=== PATIENT | female | born 1975 | race Caucasian/White ===

== ENCOUNTER 2019-05-03 13:27 | Inpatient (IN) | payer MEDICAID ==
[~2019-05-03] VITALS: Ht 160 cm; Wt 62.6 kg
[2019-05-03] VITALS (7 sets, daily range): BP systolic 119–136; BP diastolic 75–93; Ht 160 cm; Wt 62.6 kg
--- NOTE | 2019-05-03 13:45 | NUR ---
PT BACK TO LOBBY AWAITING BED AVAILABILITY. PT ASKED FOR A WHEELCHAIR, I PROVIDED AND WHEELED HERE TO [facility] L[facility]. PT AAOX4 NO DISTRESS.
--- NOTE | 2019-05-03 14:30 | NUR ---
PT WHEELED TO BED T1 GOWN PROVIDED PT INST TO PROVIDE URINE SAMPLE. PT ASKED IF I COULD WHEEL HER TO BATHROOM WHICH I DID. PRIMARY RN GRETCHEN MADE AWARE AND RESUMING CARE AT THIS TIME.
--- NOTE | 2019-05-03 14:47 | NUR ---
PT. IN ED WITH C/O EPIGASTRIC PAIN 04/17 SINCE YESTERDAY. DENIES FEVERS, N/V/D OR CONSTIPATION. PT. AAOX4, TALKING AND RESPONDING APPROPRIATELY, BREATHING E/U. NAD. AWAITING MSE
--- NOTE | 2019-05-03 14:55 | NUR ---
PT. FOUND IN ROOM, NOT RESPONSIVE. PLACED ON SET AND EXHIBIT DESIGNER. CPR STARTED.
--- NOTE | 2019-05-03 14:58 | NUR ---
DR. WELSH AT BEDSIDE.
--- NOTE | 2019-05-03 14:58 | NUR ---
DEFIB PADS PLACED ON PT. NOTED TO BE IN TORSADES RHYTHM, SHOCKED ADMINISTERED AT 120J PER DR. WELSH. CPR CONTINUED.
--- NOTE | 2019-05-03 14:58 | NUR ---
PT. FOUND IN ROOM UNRESPONSIVE AND CYANOTIC. CPR STARTED.
--- NOTE | 2019-05-03 15:00 | NUR ---
EPI 1MG IV GIVEN
--- NOTE | 2019-05-03 15:00 | NUR ---
MAG 2MG IV GIVEN, PT. SHOCKED FOR SECOND TIME AT 150JOLES.
--- NOTE | 2019-05-03 15:04 | NUR ---
PT. AWAKE, SLOW TO RESPOND. DR. WELSH AT BEDSIDE FOR INTUBATION.
--- NOTE | 2019-05-03 15:08 | NUR ---
PT. INTUBATED BY DR. WELSH. LUNG SOUNDS PRESENT TO ASCULTATION BILATERALLY. NO DIFICULITIES NOTED DURING INTUBATION.
--- NOTE | 2019-05-03 15:20 | NUR ---
BILATERAL SOFT RESTRAINTS PLACED ON BILATERAL WRIST. PT. TRYING TO PULL OUT ET TUBE.
[2019-05-03 15:42] LABS: UA SPECIFIC GRAVITY >=1.030 (1.005-1.035); microscopic required? YES; urine erythrocyte NEGATIVE (NEGATIVE)
[2019-05-03 15:48] LABS: BASOPHIL % 0.1 % (0-2); PLATELET COUNT 298 x10^3mcL (130-400); RED CELL DISTRIBUTION WIDTH 13.4 % (11.5-14.5)
[2019-05-03 15:51] LABS: AMPHETAMINE QUAL UR POSITIVE (See below)
--- NOTE | 2019-05-03 16:05 | NUR ---
WENT W/ DR. WELSH TO SPEAK W/ PT'S DAUGHTER IN QUIET ROOM. PER DAUGHTER, PT HAS NO MEDICAL HISTORY BUT DID HAVE SHINGLES RECENTLY. PER DAUGHTER, PT HAS HX OF SMOKING METH BUT HAS CUT DOWN RECENTLY D/T HAVING A NEW JOB. 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 PT ATTRIBUTED PAIN TO LIFTING @ WORK. PER DAUGHTER, PT CAME HOME & WENT TO BED, & WAS MOANING A LOT IN HER SLEEP. PT FINALLY GOT UP & ASKED TO BE BROUGHT TO HOSPITAL D/T THE PAIN. DAUGHTER STATES HER FIANCE BROUGHT PT TO THE ER EARLIER TODAY.
--- NOTE | 2019-05-03 16:16 | NUR ---
PT. BACK FROM CT
--- NOTE | 2019-05-03 16:22 | NUR ---
ACCOMPANIED PT TO AND FROM CT SCANNER. CT COMPLETED WITH NO COMPLICATIONS.
[2019-05-03 16:28] LABS: CALCIUM 7.5 mg/dL (8.5-10.1); CARBON DIOXIDE 20.5 mmol/L (21-32); CHLORIDE SERUM 104 mmol/L (98-107); CREATININE SERUM 0.7 mg/dL (0.6-1.0); GFR1 > 60 mL/min; GLUCOSE SERUM 185 mg/dL (74-106); POTASSIUM SERUM 3.8 mmol/L (3.5-5.1); SODIUM SERUM 138 mmol/L (136-145)
[2019-05-03 16:29] LABS: FREE T4 0.85 ng/dL (0.76-1.46); FREE THYROXINE INDEX 2.1 ug/dL (1.4-4.5); T4(THYROXINE) 6.6 ug/dL (4.7-13.3)
--- NOTE | 2019-05-03 16:30 | NUR ---
DAUGHTER BROUGHT IN TO SEE PT.
[2019-05-03 16:31] LABS: CK-MB 12.9 ng/mL (0-3.6)
[2019-05-03 16:39] LABS: ALKALINE PHOSPHATASE 101 U/L (46-116); ALT/SGPT 310 U/L (14-59); AST/SGOT 287 U/L (15-37); BILIRUBIN TOTAL 0.7 mg/dL (0.20-1.00); C REACTIVE PROTEIN 0.5 mg/dL (<=0.9); TOTAL PROTEIN, SERUM 6.7 g/dL (6.4-8.2)
[2019-05-03 16:45] LABS: ALBUMIN 3.2 g/dL (3.4-5.0)
--- NOTE | 2019-05-03 16:50 | NUR ---
PT. NOTED TO BE AGITATED AND TRYING TO PULL OUT ET TUBE PROPROFOL INCREASED TO 30MCG/KG/MIN.
[2019-05-03 16:52] LABS: ERYTHROCYTE SED RATE 8 mm/hr (0-20)
[2019-05-03 16:55] LABS: T3 TOTAL 1.06 ng/mL
--- NOTE | 2019-05-03 17:00 | NUR ---
PT. CONTINUES TO BE AGITATED AND TRYING TO PULL ON ET TUBE. PER. DR. KNIGHT, PROPROFOL INCREASED TO 40MCG.
--- NOTE | 2019-05-03 17:05 | NUR ---
PER RT. FIO2 CHANGED TO 60% AND RR AT 18/MIN
--- NOTE | 2019-05-03 17:10 | NUR ---
PT. CONTINUES TO BE AGITATED. PROPROFOL TITRATED TO 50MCG.
--- NOTE | 2019-05-03 17:16 | NUR ---
PT. STARTING TO SIT UP IN BED AND TYRING TO PULL OUT ET TUBE. DR. KNIGHT MADE AWARE THAT PT. IS MAXED OUT ON PROPROFOL. ATIVAN IV ORDERED.
--- NOTE | 2019-05-03 17:35 | NUR ---
PT. SLEEPING. NO AGITATION NOTED. PROPROFOL TITRATED TO 45MCG. PT. TOLERATING WELL. WILL CONTINUE TO MONITOR
--- NOTE | 2019-05-03 18:30 | NUR ---
PT. RESTING, CONTINUES TO BE ON VENTILATOR. TOLERATING WELL. NO AGITATION OR PULLING OF LINES NOTED. FRANKLIN IN PLACE AND NOTED TO HAVE CLEAR MORAIMA URINE IN COLLECION BAG. PT. MOUTH SUCTIONED. CLEAR PHLEM NOTED IN MOUTH. PER XRAY RESULTS NG TUBE IN PLACE BUT MAY BE ADVANCED, NE. DR. KNIGHT, NO ADVANCEMENT OF NG NEEDED AT THIS TIME. PT. ABD SOFT NON DISTENDED. PT. CONTINUES TO BE ON CUSTOMER RELATIONS REPRESENTATIVE IN NSR. BILATERAL WRIST RESTRAINTS IN PLACE, +PULSES BILATERALLY, NO SKIN BREAKDOWN NOTED. SISTER AT BEDSIDE. WILL CONTINUE TO MONITOR.
[2019-05-03 18:33] LABS: MAGNESIUM 2.2 mg/dL (1.8-2.4)
--- NOTE | 2019-05-03 18:58 | NUR ---
350ML OF CLEAR MORAIMA URINE EMPTIED OUT OF FRANKLIN BAG
--- NOTE | 2019-05-03 19:12 | NUR ---
PT. NOTED TO HAVE TAMPON IN VAGINA, REMOVED AND PAD PLACED TO PERINEAL AREA.
--- NOTE | 2019-05-03 19:15 | NUR ---
RECEIVED REPORT FROM LIZETH GODINEZ. PT ET TO VENT. SETTINGS R 18 TV 450 PEEP 5 02 60% PF 60. RSS 5. PROPOFOL TITRATED DOWN TO 40MCG/KG/MIN. PT HAS BILATERAL SOFT WRIST RESTRAINTS, CIRCULATION WNL. FRANKLIN CATHETER DRAINING YELLOW URINE TO GRAVITY, FREE OF KINKS. NG TUBE NOTED TO RIGHT NARE. FAMILY AT BEDSIDE. DR KNIGHT TO UPDATE FAMILY AT BEDSIDE. WILL CONTINUE PLAN OF CARE.
--- NOTE | 2019-05-03 19:17 | NUR ---
REPORT GIVEN TO ARISTEO RN FOR FURTHER CARE OF PATIENT. ALL QUESTIONS AND CONCERNS ADDRESSED.
--- NOTE | 2019-05-03 19:24 | NUR ---
NG TUBE CONNECTED TO INTERMITTENT SUCTION PER DR KNIGHT VERBAL ORDER. OUTPUT LIGHT BROWN WITH BROWN CHUNKS NOTED.
--- NOTE | 2019-05-03 19:25 | NUR ---
RSS 5. PROPOFOL TITRATED DOWN TO 35MCG/KG/HR.
--- NOTE | 2019-05-03 19:44 | NUR ---
RSS 5. PROPFOL TITRATED TO 30MCG/KG/HR.
--- NOTE | 2019-05-03 19:45 | NUR ---
SPOKE [facility] FAMILY. GIVEN CONTACT INFO FOR DAUGHTER AND SISTER. PRIMARY CONTACT-DAUGHTERJEANIE. SISTER- JULIET .
--- NOTE | 2019-05-03 19:52 | NUR ---
REPORT CALLED AND GIVEN TO LIZETH RICHARDS.
--- NOTE | 2019-05-03 20:10 | NUR ---
NEW BOTTLE OF PROPOFOL SPIKED. PROPOFOL INFUSING AT 30MCG/KG/MIN.
--- NOTE | 2019-05-03 20:12 | NUR ---
450ML OUTPUT FROM NG.
--- NOTE | 2019-05-03 20:15 | NUR ---
RECEIVED PT FROM ER VIA GURNEY ACCOMPANIED BY 3 RN'S. PT TRANSFERRED TO BED 9 WITH NO COMPLICATIONS. PT CONNECTED TO FULL AIR HOLE DRILLER READING SR, VITALS READING: HR 87, NIBP 119/76 MAP 88, RR 18, SPO2 100%, AXILLARY TEMP 97.9. PT IS INTUBATED AND SEDATED ON PROPOFOL @ 30 MCG/KG/MIN. RSS=4. PT RESPONDS TO TACTILE STIMULI. PT DOES NOT FOLLOW COMMANDS. PUPILS WITH SLUGGISH RESPONSE TO LIGHT, 3 MM BLAT. GAG REFLEX PRESENT. 7.5 ETT INTACT/SECURED, 22 CM @ LL. RIGHT NARE NGT INTACT/ SECURED, PLACED ON LIS PER MD ORDER, PRICE COLORED DRAINAGE NOTED. BREATHING IS E/U ON VENT. VENT SETTINGS: VCV/AC MODE, RATE 18, VT 450, PEEP 5, FIO2 60%. LUNGS SOUND CLEAR TO BUL AND DIMIN TO BLL. SYMMETRICAL CHEST EXPANSION NOTED. PALPABLE PULSES X4 EXTREMITIES. SKIN IS WARM AND DRY. NO EDEMA NOTED. CAP REFILL < [address] IV IN PL[address] WITH NO S/S OF INFILTRATION NOTED. PT ON BILAT SOFT WRIST RESTRAINT FOR PT SAFETY, GOOD CIRCULATION NOTED, SKIN/PULSE WNL. ABD IS SOFT, FLAT, NONTENDER TO PALPATION. BOWEL SOUNDS ACTIVE X4 QUADRANTS. NO BM NOTED. F/C IS INTACT/SECURED, DRAINING VIA GRAVITY WITH MORAIMA COLORED URINE. SKIN IS INTACT. BED IN LOW POSITION. CALL LIGHT IN REACH. WILL CONT TO MONITOR
--- NOTE | 2019-05-03 20:19 | NUR ---
PT TRANSFERRED TO ICU WITH 2RN'S, TECH AND RT. ETT TO VENT. NG TUBE CLAMPED. PROP INFUSING AT 30MCG/KG/MIN. RSS 4. PT TRANSFERRED ON FULL CM. ALL PERSONAL BELINGINGS SENT WITH PT. FAMILY AWARE OF TRANSFER. RESP E/U. VSS AT TIME OF TRANSFER.
[2019-05-03 20:26] LABS: CHOLESTEROL/HDL RATIO 1.9
--- NOTE | 2019-05-03 22:09 | NUR ---
RT ZHONG AT BEDSIDE. FIO2 TITRATED TO 50%. PT'S CURRENT O2 SATURATION 100%. WILL CONT TO MONITOR
--- NOTE | 2019-05-03 22:35 | NUR ---
RAC IV REMOVED AT THIS TIME AND NEW 20 GAUGE IV ESTABLISHED TO THE RIGHT HAND. IV FLUSHED 10 ML OF NS WITH NO S/S OF INFILTRATION NOTED
[2019-05-04] VITALS (18 sets, daily range): BP systolic 114–137; BP diastolic 67–94
[2019-05-04 00:05] LABS: CALCIUM 7.5 mg/dL (8.5-10.1); CARBON DIOXIDE 25.6 mmol/L (21-32); CHLORIDE SERUM 105 mmol/L (98-107); CREATININE SERUM 0.5 mg/dL (0.6-1.0); GFR1 > 60 mL/min; GLUCOSE SERUM 118 mg/dL (74-106); MAGNESIUM 1.9 mg/dL (1.8-2.4); POTASSIUM SERUM 3.3 mmol/L (3.5-5.1); SODIUM SERUM 139 mmol/L (136-145)
--- NOTE | 2019-05-04 00:36 | NUR ---
FIO2 TITRATED TO 40% BY FARHEEN DALLAS. CURRENT O2 SATURATION 99%. WILL CONT TO MONITOR.
--- NOTE | 2019-05-04 04:40 | NUR ---
REMOTELY OPERATED VEHICLE AT BEDSIDE FOR AM LAB DRAW
[2019-05-04 05:15] LABS: BASOPHIL % 0.1 % (0-2); PLATELET COUNT 303 x10^3mcL (130-400); RED CELL DISTRIBUTION WIDTH 13.3 % (11.5-14.5)
[2019-05-04 05:31] LABS: CALCIUM 7.7 mg/dL (8.5-10.1); CARBON DIOXIDE 25.2 mmol/L (21-32); CHLORIDE SERUM 106 mmol/L (98-107); CREATININE SERUM 0.5 mg/dL (0.6-1.0); GFR1 > 60 mL/min; GLUCOSE SERUM 111 mg/dL (74-106); MAGNESIUM 2.1 mg/dL (1.8-2.4); POTASSIUM SERUM 4.2 mmol/L (3.5-5.1); SODIUM SERUM 139 mmol/L (136-145)
--- NOTE | 2019-05-04 05:50 | NUR ---
RT FARHEEN AT BEDSIDE. FIO2 TITRATED TO 30%. PT'S O2 SATURATION 99%. WILL CONT TO MONITOR
--- NOTE | 2019-05-04 07:05 | NUR ---
REPORT GIVEN TO FERDINAND STANLEY FOR CONTINUITY OF CARE. ALL QUESTIONS/CONCERNS ADDRESSED. ENDORSING ALL CARE
--- NOTE | 2019-05-04 07:28 | NUR ---
THE PATIENT IS SEDATED WITH PROPOFOL AT 30MCG/KG/MIN. THE PATIENT RESPONSIVE TO TACTILE STIMULI AND FOLLOWS SOME SIMPLE COMMANDS. PATIENT GETS RESLTESS/AGITATED WHEN SEDATION IS ON VACATION. SEDATION IS RESUMED. ANA PUPILS WITH SLUGGISH REACTION TO LIGHT. NGT TO RIGHT NARE AND TO LOWER INTERMITTENT SUCTION WITH BROWN PARTICLE IN CLEAR SECRETION IN THE TUBE. ETT 7.[address] AT 22CM AT LIPLINE. ETT TO VENT VIA VCV/AC MODE: FIO2 30%, RATE 18, VT 450 AND PEEP 5. TELE # 9 READS SINUS TACHYCADIA. FRANKLIN CATH TO GRAVITY DRAINING MORAIMA URINE. IVF NS AT 60 CC/HR VIA IV SITE AT RIGHT HAND. ANOTHER IV SITE TO LAC FOR PROPOFOL. SOFT WRIST RESTRAINTS TO BOTH WRISTS WILL BE RELEASED FOR ROM Q2HR/PRN. CALL LIGHT WITHIN REACH. SIDE RAILS UP X3. BED IS LOWEST POSITION. ALARM IS ON.
--- NOTE | 2019-05-04 08:31 | NUR ---
DR. WHITT IS AT BEDSIDE EXAMING THE PATIENT.
--- NOTE | 2019-05-04 09:05 | NUR ---
CAFETERIA CLERK IS AT BEDSIDE FOR ECHO.
--- NOTE | 2019-05-04 09:55 | NUR ---
DR. TOTH AND THE TEAM WERE MAKING ROUND TO SEE THE PATIENT. UPDATE PROVIDED TO THE DR. TOTH.
--- NOTE | 2019-05-04 10:08 | NUR ---
DR. COLEMAN IS AT BEDSIDE EXAMING THE PATIENT. UPDATE PROVIDED TO THE DOCTOR.
--- NOTE | 2019-05-04 10:42 | NUR ---
THE PATIENT IS GETTING RESTLESS/AGITATED; PATIENT IS MOVING BUE AND KICKING. PROPOFOL IS TITRATED FROM 30MCG/KG/MIN UP TO 35MCG/KG/MIN.
--- NOTE | 2019-05-04 10:56 | NUR ---
PLANT CYTOLOGIST IS AT BEDSIDE FOR SMALL BOWEL FOLLOW THROUGH.
--- NOTE | 2019-05-04 13:15 | NUR ---
Discount pharmacy card and list to low cost medical clinics given to patient by Clement Canseco.
--- NOTE | 2019-05-04 14:16 | NUR ---
DR HERNANDEZ AT BEDSIDE TO ASSESS PATIENT. PATIENT'S DAUGHTER JEANIE AT BEDSIDE. DR HERNANDEZ DISCUSSED POC WITH JEANIE. ALL QUESTIONS AND CONCERNS ADDRESSED.
--- NOTE | 2019-05-04 14:55 | NUR ---
BOLUS OF AMIODORONE 150 MG IV INITIATED AT THIS TIME FOLLOW BY AMIO DRIP AT 1 MG/HR.
--- NOTE | 2019-05-04 15:00 | NUR ---
ANOTHER IV SITE #20G INSERTED TO LFA FOR MORE ACCESS.
--- NOTE | 2019-05-04 16:43 | NUR ---
XR TECH IS AT BEDSIDE FOR KUB TO RECHECK NGT PLACEMENT AFTER IT WAS ADVANCED 2 INCHES.
--- NOTE | 2019-05-04 17:50 | NUR ---
THE SILVER COLORED RING WAS REMOVED FROM THE RIGHT MIDDLE FINGER (DUE TO EDEMA OF THE FINGER) AND STORED IN A PLASTIC BAG. WILL HAND IT TO ONCOMING RN TO GIVE IT BACK TO THE FAMILY. THE PATIENT WAS GIVEN A BED BATH. LINEN AND GOWN CHANGED. FRANKLIN CARE PROVIDED TO THE PATIENT.
--- NOTE | 2019-05-04 18:25 | NUR ---
TUBE FEEDING WITH VITAL AF VIA NGT WAS INITIATED AT 10ML/HR AND FREE WATER FLUSH 50ML Q4HR. ORDERED.
--- NOTE | 2019-05-04 19:07 | NUR ---
RECEIVED GROUP REPORT FROM KIMBERLY KAT AND ANI STANLEY. WILL RESUME CARE.
--- NOTE | 2019-05-04 19:09 | NUR ---
REPORT WAS GIVEN TO MAYRA BEAL RN. CONCERNS WERE ADDRESSED. THE RING WAS HANDED TO EMIGDIO IN ORDER TO GIVE TO THE FAMILY. ALSO, ENDORSE TO EMIGDIO 3 BAGS OF FENTANYL AND 2 BAGS OF VERSED FOR THE PATIENT'S SEDATION.
--- NOTE | 2019-05-04 19:20 | NUR ---
RECEIVED PT INTUBATED AND SEDATED ON FENTANYL AT 4MMCG/KG/HR AND VERSED AT 2MG/HR. PT IS RESPONSIVE TO TACTILE STIMULI. UNABLE TO FOLLOW COMMANSDS. PUPILS 3MM SLUGGISH. 7.5 ETT AT 22CM LL INTACT AND SECURED. R NGT INTACT AND SECURED. NO REDNESS, DRAINAGE, OR SWELLING NOTED TO EENT. VENT ON VCV-AC MODE WITH SETTINGS OF VT 450, FIO2 30%, R 18, PEEP 5. LUNG SOUNDS CLEAR TO UPPER LOBES AND DIMINISHED TO BASES. VAP CARE PROVIDED. S1S2 AUSCULTATED WITH NO MURMURS NOTED. NO S/SX OF CHEST PAIN. AMIODARONE GTT AT 1MG/MIN. CAP REFILL <3 SEC. PULSES PALPABLE. TRACE EDEMA TO BUE AND BLE. GENERALIZED WEAKNESS. JOINTS INTACT. NO CONTRACTURES NOTED. ON VITAL AF 1.2 AT 10ML/HR WITH FWF OF 50 Q4HRS. PLACEMENT CHECKED. 20 CC OF RESIDUAL NOTED AND REPLACED. ABDOMEN ROUND, NONTENDER. BS ACTIVE X 4. NO N/V. NO BM AT THIS TIME. FRANKLIN CATHETER IN PLACE DRAINING VIA GRAVITY MORAIMA URINE. BED IN LOW POSITION. CALL LIGHT WITHIN REACH. WILL CONTINUE TO MONITOR.
--- NOTE | 2019-05-04 21:30 | NUR ---
AMIODARONE GTT TITRATED FROM 1MG/MIN TO 0.5MG/MIN PER MD ORDER.
--- NOTE | 2019-05-04 23:10 | NUR ---
TF OF VITAL AF INCREASED FROM 10ML/HR TO 20ML/HR. NO RESIDUAL NOTED. PT TOLERATING FEEDING WELL.
[2019-05-05] VITALS (11 sets, daily range): BP systolic 104–135; BP diastolic 66–86
--- NOTE | 2019-05-05 00:25 | NUR ---
RT ZHONG AT BEDSIDE ASSESSING PT.
--- NOTE | 2019-05-05 07:35 | NUR ---
RECEIVED PT'S REPORT FROM LEAVING NURSE. PT IS SEDATED ON VERSED 4MG/HR, FENTANYL 2MCG/KG/HR, RSS 4, PT RESPONSED TO TACTILE AND LOUDLY AUDITORY STIMULI WITH BODY WITHDRAWN. PT IS INTUBATED, BREATHING ON VENT AC MODE: PEEP 5, FIO2 30%, VT 450, RR 18. NGT IN R NARIS, VITAL AF TUBE FEEDING AT 30ML/HR WFW 50ML Q4. FRANKLIN CATHETER IN PLACE, DRAINING VIA GRAVITY, DARK MORAIMA URINE. AMIODARON INFUSING AT 0.5MG/MIN. NS INFUSING AT 60ML/HR. WILL CONTINUE PT'S CARE.
--- NOTE | 2019-05-05 07:40 | NUR ---
PT IS ON VITAL AF NGT FEED AT 30ML/HR. PT'S RESIDUAL CHECK, 5ML REPLACED. INCREASED PT'S FEEDING TO 40ML/HR, WFW 50ML Q4H.
--- NOTE | 2019-05-05 08:37 | NUR ---
STARTED PT SEDATION VACATION. RT SHANAE AT BED SIDE.
--- NOTE | 2019-05-05 10:10 | NUR ---
PT'S DAUGHTER JEANIE GARCIA CAME AT BEDSIDE. PT'S RING IS GIVEN TO HER DAUGHTER JEANIE TO TAKE HOME. SEDATION IS OFF, PT IS BREATHING ON VENT CPAP MODE, TOLERATE WELL. PT REMAINING EYES CLOSED AT MOST TIME, BUT PT RESPONSED TO SIMPLE QUESTION WITH NODDING/ SHAKING HEAD. PT FOLLOWS SIMPLE COMMAND. WILL CONTINUE TO MONITOR.
--- NOTE | 2019-05-05 11:42 | NUR ---
PT'S NGT FEEDING RESIDUAL CHECK 20ML, REPLACED. INCREASED TUBE FEEDING FROM 40ML/HR TO 50ML/HR WFW 50ML Q4H.
--- NOTE | 2019-05-05 14:21 | NUR ---
PT IS EXTUBATED AT [address] WHITT ORDER. PT TOLERATE WELL. PT OPEN EYES SPONTANEOUS, FOLLOW COMMAND. ANA SOFT WRIST RESTRAINTS REMOVED. PT IS BREATHING ON O2 2L VIA NC, O2 SAT 99%. WILL CONTINUE TO MONITOR.
--- NOTE | 2019-05-05 16:38 | NUR ---
STOPED AMIODARONE DRIP PER DR. HERNANDEZ'S ORDER. WILL START AMIODARONE PO TONIGHT.
--- NOTE | 2019-05-05 18:02 | NUR ---
BEDSIDE SWALLOW SCREEN COMPLETED. PATIENT ABLE TO TOLERATE JELLO, APPLE SAUCE, PUDDING AND WATER WITH NO COUGHING, GAGGING OR CHOKING. PRIMARY RN MADE AWARE.
--- NOTE | 2019-05-05 19:24 | NUR ---
PT TOLERATE WELL ON FL DIET. ENDORSED PT'S CARE TO RECEIVING NURSE. PT BREATHING ON O2 2L VIA NC, EVEN, UNLABORED. AMIODARONE INFUSING AT 0.5MG/MIN, MAKE RECEIVING NURSE AWARE: TURN OFF AMIODARONE DRIP ONE HOUR AFTER AMIO PO GIVEN.
--- NOTE | 2019-05-05 19:30 | NUR ---
RECEIVED REPORT FROM LIZETH ARRIETA. PT IS ALERT AND ORIENTED X3. PUPILS REACTIVE TO LIGHT. LETHARGIC. PT IS BREATHING E/U ON 2L NC. LUNG SOUNDS CLEAR TO BILATERAL UPPER LOBES, DIMINISHED TO BILATERAL LOWER LOBES. S1 S2 HEART SOUNDS AUSCULTATED. SINUS TACHYCARDIA. PULSES MODERATE X4. CAP REFILL <3 SECS X4. SKIN IS WARM AND PINK. PERIPHERAL IV TO RH, LAC, AND LFA PATENT, DRESSING CDI. NS INFUSING AT 60 ML/HR AND AMIODARONE INFUSING AT 0.5 MG/MIN. ABD IS SOFT AND FLAT WITH ACTIVE BOWEL SOUNDS X4Q. FRANKLIN DRAINING VIA GRAVITY. URINE IS MORAIMA WITH FAIR OUTPUT. SKIN INTACT. ALL QUESTIONS AND CONCERNS ANSWERED. WILL CONTIINUE TO MONITOR.
--- NOTE | 2019-05-05 22:00 | NUR ---
AMIODORONE DRIP STOPPER PER PROTOCOL. PO AMIO GIVEN AT SCHEDULED TIME.
--- NOTE | 2019-05-06 05:10 | NUR ---
PT PROVIDED WITH FULL BED BATH AND LINEN CHANGE. FRANKLIN CARE ALSO PROVIDED. PT ABLE TO ASSIST IN TURNING. PT COMPLAINING OF RIGHT ARM WEAKNESS. STATES THAT HER ARM FEELS SORE.
[2019-05-06 05:22] LABS: BASOPHIL % 0.3 % (0-2); PLATELET COUNT 295 x10^3mcL (130-400); RED CELL DISTRIBUTION WIDTH 13.4 % (11.5-14.5)
[2019-05-06 05:33] LABS: CALCIUM 7.7 mg/dL (8.5-10.1); CARBON DIOXIDE 26.9 mmol/L (21-32); CHLORIDE SERUM 106 mmol/L (98-107); CREATININE SERUM 0.5 mg/dL (0.6-1.0); GFR1 > 60 mL/min; GLUCOSE SERUM 108 mg/dL (74-106); MAGNESIUM 1.9 mg/dL (1.8-2.4); POTASSIUM SERUM 3.6 mmol/L (3.5-5.1); SODIUM SERUM 140 mmol/L (136-145)
--- NOTE | 2019-05-06 06:20 | NUR ---
DR. ANDRADE AT BEDSIDE FOR UPDATES. ALL QUESTIONS AND CONCERNS ANSWERED.
[2019-05-06 08:00] VITALS: BP 123/77
--- NOTE | 2019-05-06 08:10 | NUR ---
AAO TIMES 4. COOPERATIVE. IV SITE RIGHT HAND PATENT, CDI. LUNGS CTA BUL, DIMINISHED BASES. O2 SAT ON RA 97%. BS'S ACTIVE TIMES 4. PERIPHERAL PULSES PALPABLE. NO EDEMA BLE, SLIGHT HAND EDEMA. WITH RIGHT ARM AND HAND WEAKNESS. TOLERATING FULL LIQUID DIET. NO C/O PAIN.
--- NOTE | 2019-05-06 08:41 | NUR ---
PATIENT REMOVED FROM ICU POLE FRAME CONSTRUCTION WORKER AND ASSISTED TO BEDSIDE COMMODE WITHOUT INCIDENT. PATIENT INSTRUCTED TO USE CALL LIGHT BEFORE RETURNING TO BED.
[2019-05-06 09:39] VITALS: BP 135/83
--- NOTE | 2019-05-06 12:13 | NUR ---
ERYTHEMA AND WARMTH TO LFA AROUND THE 2 IV SITES FROM LAC TO LFA. DR WHITT TALKED WITH HER ABOUT HER DRUG USE AND HER HEALTH. DR WHITT SAW THE LFA AND SAID TO REMOVE THE BOTH IV SALINE LOCKS, APPLY NEOSPORIN TO BOTH AND START AN IV ON THE OTHER ARM. A PHOTO WAS TAKEN OF LFA.
--- NOTE | 2019-05-06 12:48 | NUR ---
SCREEN FOR LOW RAMANDEEP SCALE AT RISK CONTINUE PRESSURE ULCER PREVENTION INTERVENTIONS: -TURN AND REPOSITION PATIENT Q 2H OFFLOAD LEFT AND RIGHT HIPS -ASSESS AND MONITOR SKIN CONDITION DURING POSITION CHANGE -OFFLOAD BILATERAL HEELS BY PLACING PILLOWS UNDER CALVES AT ALL TIMES, UNLESS OTHERWISE CONTRAINDICATED -PRESSURE REDISTRIBUTION SURFACE THERAPY -KEEP SKIN CLEAN AND DRY AT ALL TIMES.
--- NOTE | 2019-05-06 12:50 | NUR ---
PATIENT'S MOTHER TELEPHONED UNIT FOR PATIENT UPDATE. PATIENT STATED THAT I CAN TELL HER MOTHER THAT SHE IS OKAY AND WILL BE LEAVING THE IN THE NEXT COUPLE OF DAYS ONLY. LIMITED INFORMATION PROVIDED TO PATIENT'S MOTHER PER PATIENT REQUEST. MOTHER PROVIDED TELEPHONE NUMBER WHICH WAS GIVEN TO PATIENT SO SHE MAY RETURN HER CALL WHEN SHE WANTED.
--- NOTE | 2019-05-06 16:14 | NUR ---
GAVE REPORT TO VEENA RN RESOURCE NURSE AT 1610. PATIENT WILL GO TO ROOM 223B VIA W/C. TELE# 14 SR. VS'S STABLE. NO SOB. HER FAMILY IS AWARE THAT SHE IS GOING TO MED SURG/TELE. SL TO LFA CDI.
--- NOTE | 2019-05-06 16:39 | NUR ---
SHE URINATED TWICE AT BSC AFTER FRANKLIN CATH WAS REMOVED, WITHOUT DIFFICULTY.
--- NOTE | 2019-05-06 16:50 | NUR ---
PATIENT TRANSFERRED FROM WHEELCHAIR TO BED. PATIENT APPEARS INDEPENDENTLY AMBULATORY. NO SIGNS OF DISTRESS NOTED. ALERT AND ORIENTED X 4. RESPIRATION EVEN AND UNLABORED ANTERIOR POSTERIOR BILATERAL BASES. LUNG SOUNDS CLEAR IN ALL QUADRANTS. APICAL HEART RATE 60 BPM. RADIAL AND PEDAL PULSES STRONG, REGULAR BILATERAL UPPER AND LOWER EXTREMITIES. PATIENT HAS 22G IV ON LEFT WRIST TKO. NO SIGNS OF DISTRESS NOTED. WILL CONTINUE TO MONITOR. CALL LIGHT WITHIN REACH.
[2019-05-06 17:00] VITALS: BP 137/84
--- NOTE | 2019-05-06 17:50 | NUR ---
PATIENT APPEARS STABLE. EATING DINNER AND TALKING ON THE PHONE WITH DAUGHTER. NO SIGNS OF DISTRESS NOTED. WILL CONTINUE TO MONITOR. CALL LIGHT WITHIN REACH.
--- NOTE | 2019-05-06 18:44 | NUR ---
END OF SHIFT RN NOTE: PATIENT IS SLEEPING IN BED AFTER EATING. NO SIGNS OF DISTRESS NOTED. PATIENT ON TKO NS. WILL CONTINUE TO MONITOR. CALL LIGHT WITHIN REACH.
--- NOTE | 2019-05-06 19:05 | NUR ---
REPORT RECEIVED FROM DAY SHIFT RN. PATIENT WAS SEEN AND IS RESTING COMFORTABLY IN BED. ASLEEP, BUT EASILY AROUSABLE BY VERBAL STIMULI. PATIENT SEEMS DROWSY AND LETHARGIC. A/OX4. ABLE TO MAKE NEEDS KNOWN. DENIES MILLER OR DIZZINESS. BREATHING EVEN AND UNLABORED ON ROOM AIR. NO SOB OR RESP DISTRESS NOTED. DENIES CHEST PAIN/PRESSURE. NO C/O PAIN. IV TO THE LW, 22G. PATENT AND INTACT. NO REDNESS OR SWELLING NOTED. ASSISTED PATIENT TO BATHROOM. PATIENT AMBULATED WELL WITH A SLOW, BUT STEADY GAIT. VOIDED X1. ASSISTED PATIENT BACK TO BED. MADE COMFORTABLE. SCD APPLIED. ORANGE JUICE GIVEN. COMFORT AND SAFETY MEASURES IN PLACE. BED IS LOCKED AND IN THE LOWEST POSITION. SIDE RAILS UP X2. HOB ELEVATED. CALL LIGHT IS WITHIN REACH. WILL CONTINUE TO MONITOR.
[2019-05-06 21:10] VITALS: BP 110/48
--- NOTE | 2019-05-06 21:29 | NUR ---
BP 110/48 (97), HR 112. RECHECKED. BP 117/69 (85), HR 107. PER EDGARD RAMÍREZ TO GIVE AMIODARONE. SCHEDULED MEDS GIVEN. NO DISTRESS NOTED. BREATHING EVEN AND UNLABORED ON ROOM AIR. APPLIE JUICE GIVEN X2. NO ASPIRATION NOTED. HOB ELEVATED. SAFETY MEASURES IN PLACE. CALL LIGHT IS WITHIN REACH. WILL CONTINUE TO MONITOR.
--- NOTE | 2019-05-06 23:43 | NUR ---
IN PATIENT'S ROOM TO HANG PinkUP. MED EDUCATION GIVEN. OPENED APPLE JUICE FOR PATIENT. NO ASPIRATION NOTED. APPLIED 2L NC ON PATIENT. LOW O2 SAT ON ROOM AIR. NO SATING AT 95%. ASSISTED PATIENT TO BATHROOM. EDUCATION PATIENT TO CALL FOR ASSISTANCE BACK TO BED. VERBALIZED UNDERSTANDING. WILL CONTINUE TO LISA.
--- NOTE | 2019-05-07 03:31 | NUR ---
IV TO LW CAME OUT WHEN PATIENT WENT TO THE BATHROOM. CATHETER INTACT. NEW IV PLACED TO LW, 22G. PATENT AND INTACT. FLUSED WELL. PATIENT TOLERATED WELL. SALINE LOCK. NO DISTRESS NOTED. NO C/O PAIN. SAFETY MEASURES IN PLACE. CALL LIGTH IS WITHIN REACH. WILL CONTINUE TO MONITOR.
[2019-05-07 05:47] VITALS: BP 117/73
--- NOTE | 2019-05-07 06:24 | NUR ---
RESTED IN INTERVALS THROUHGOUT THE NIGHT. NO ACUTE CHANGES NOTED. BREATHING EVEN AND UNLABORED ON ROOM AIR. NO SOB NOTED. NO DISTRESS NOTED. DENIES CHEST PAIN/PRESSURE. IV ABX INFUSING WELL. PATENT AND INTACT. NO REDNESS OR SWELLING NOTED. NO C/O PAIN THROUGHOUT THE NIGHT. ALL NEEDS AND CONCERNS ADDRESSED. COMFORT AND SAFETY MEASURES IN PLACE. CALL LIGHT IS WITHIN REACH. WILL ENDORSE CARE TO DAY SHIFT RN.
[2019-05-07 06:50] LABS: BASOPHIL % 0.1 % (0-2); PLATELET COUNT 330 x10^3mcL (130-400); RED CELL DISTRIBUTION WIDTH 13.2 % (11.5-14.5)
[2019-05-07 07:24] LABS: CHLORIDE SERUM 107 mmol/L (98-107); CREATININE SERUM 0.5 mg/dL (0.6-1.0); GFR1 > 60 mL/min; GLUCOSE SERUM 112 mg/dL (74-106); MAGNESIUM 1.8 mg/dL (1.8-2.4); PHOSPHOROUS 3.3 mg/dL (2.5-4.9); POTASSIUM SERUM 4.2 mmol/L (3.5-5.1); SODIUM SERUM 142 mmol/L (136-145)
--- NOTE | 2019-05-07 07:30 | NUR ---
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 Christianne/CARLA. TELE#14. DENIES CHEST PAIN/PRESSURE. RESPIRATIONS EQUAL AND UNLABORED ON RA. PT DENIES SOB AT THIS TIME. PT STATES SHE DOES HAVE SOME CHEST TIGHTNESS THAT IS RELIEVED WITH BREATHING TREATMENTS. PT DENIES ANY PAIN AT THIS TIME. PT DENIES ANY N/V. IV TO LW SALINE LOCKED. NO REDNESS OR SWELLING NOTED. WILL CONTINUE TO MONITOR. CALL LIGHT IN REACH. BED IN LOWEST POSITION.
[2019-05-07 08:48] VITALS: BP 119/76
--- NOTE | 2019-05-07 09:34 | NUR ---
PT SITTING UP IN BED. NO ACUTE RESP DISTRESS NOTED ON RA. PT DENIES ANY PAIN AT THIS TIME. GIVEN PO MEDS. TOLERATED WELL. IV TO RW FLUSHED WELL. NO REDNESS OR SWELLING NOTED. IV SALINE LOCKED. WILL CONTINUE TO MONITOR. CALL LIGHT IN REACH. BED IN LOWEST POSITION.
[2019-05-07 12:49] VITALS: BP 131/86
--- NOTE | 2019-05-07 12:59 | NUR ---
PT SITTING UP IN BED. NO ACUTE RESP DISTRESS NOTED ON RA. PT STATES "DEV BEEN HAVING MORE FLEM AND I FEEL LIKE ITS HARD TO GET UP" ENCOURAGED PT TO INCREASE ORAL INTACT AND DRINK MORE FLUIDS. PT VERBALIZED UNDERSTANDING. PT DENIES ANY PAIN AT THIS TIME. PT ASKING TO GO HOME. PER DR. ANDRADE WILL AWAIT FOR DR. HERNANDEZ TO CLEAR PT. PT VERBALIZED UNDERSTANDING. WILL CONTINUE TO MONITOR. CALL LIGHT IN REACH. BED IN LOWEST POSITION.
[2019-05-07 16:52] VITALS: BP 122/89
--- NOTE | 2019-05-07 18:27 | NUR ---
PT IN BED RESTING. NO ACUTE RESP DISTRESS NOTED ON RA. PT DENIES ANY N/V. PT DENIES ANY ABDOMINAL PAIN. IV SALINE LOCKED TO LW. NO REDNESS OR SWELLING NOTED. WILL ENDORSE TO FOOD HANDLER RN. CALL LIGHT IN REACH. BED IN LOWEST POSITION.
--- NOTE | 2019-05-07 19:45 | NUR ---
PT SEEN, RESTING IN BED, ASLEEP BUT EASILY AROUSABLE, ALERT AND ORIENTED X 4, DENIES HEADACHE OR DIZZINESS, BREATHING EVEN AND UNLABORED, LUNG SOUND CLEAR BUT DIMINISHED AT BASE, ON ROOM AIR WITH NO RESP DISTRESS NOTED, RT PROTOCOL, ON TELE#6 ST, DENIES CHEST PAIN, SL TO LW, PULSES PALPABLE, EDEMA NOTED TO BUE AND BLE, GENERALIZED WEAKNESS, AMBULATORY WITH MINIMAL ASSIST, ABD SOFT AND FLAT WITH ACTIVE BS, NO BM AT THIS TIME, VOIDING FREELY, NO DISTRESS NOTED, WILL KEEO TO MONITOR.
[2019-05-07 19:55] VITALS: BP 123/72
[2019-05-08 04:44] VITALS: BP 134/78
--- NOTE | 2019-05-08 05:26 | NUR ---
PT ASLEEP BUT EASILY AROUSABLE, SLEPT MOST OF NIGHT, BREATHING EVEN AND UNLABORED ON ROOM AIR WITH NO RESP DISTRESS OR SOB NOTED, IVF INFUSING WITH FLAGYL AT THIS TIME, NO DISTRESS NOTED, WILL KEEP TO MONITOR.
--- NOTE | 2019-05-08 07:13 | NUR ---
BEDSIDE HANDOFF REPORT GIVEN TO DAVID, ALL QUESTIONS ANSWERED AND CONCERNS ADDRESSED.
--- NOTE | 2019-05-08 07:15 | NUR ---
RECEIVED PT RESTING BUT EASILY AROUSABLE. ALERT AND ORIENTED X4. ABLE TO FOLLOW COMMANDS. SPEECH IS CLEAR AND APPROPRIATE FOR AGE. NO FACIAL DROOP. SMILE IS SYMMETRICAL. PERRL. EENT FREE OF DISCHARGE. TRACHEA MIDLINE. NO JVD. ON ROOM AIR. RESPIRATIONS EVEN AND UNLABORED. SYMMETRICAL CHEST WALL EXPANSION. NO ADVENTITIOUS LUNG SOUNDS HEARD. NSR ON TELE MONITOR. NO MURMURS AUSCULTATED. EDEMA TO BLE. CAP REFILL <3 SEC. SKIN IS WARM/DRY TO TOUCH, PINK IN COLOR. PIV TO L AC INTACT, PORT PATENT, DRESSING CDI. ABD IS SOFT, SYMMETRICAL, ROUNDED, AND NONTENDER. ACTIVE BOWEL SOUNDS X4. NO BM AT THIS TIME. VOIDS FREELY. AMBULATORY. ABLE TO MOVE ALL EXTREMITIES WITH FULL ROM. JOINTS INTACT. NO CONTRACTURES. X3 SIDE RAILS UP, BED IN LOWEST POSITION, CALL LIGHT WITHIN REACH.
--- NOTE | 2019-05-08 07:15 | NUR ---
RECEIVED REPORT FROM ROBERTA STANLEY. ALL QUESTIONS ANSWERED AND ADDRESSED. WILL ASSUME CARE OF PT.
[2019-05-08 07:49] LABS: CALCIUM 8.1 mg/dL (8.5-10.1); CARBON DIOXIDE 27.8 mmol/L (21-32); CHLORIDE SERUM 105 mmol/L (98-107); CREATININE SERUM 0.7 mg/dL (0.6-1.0); GFR1 > 60 mL/min; GLUCOSE SERUM 141 mg/dL (74-106); MAGNESIUM 1.6 mg/dL (1.8-2.4); PHOSPHOROUS 3.1 mg/dL (2.5-4.9); POTASSIUM SERUM 3.9 mmol/L (3.5-5.1); SODIUM SERUM 141 mmol/L (136-145)
[2019-05-08 07:50] LABS: BASOPHIL % 0.2 % (0-2); PLATELET COUNT 363 x10^3mcL (130-400); RED CELL DISTRIBUTION WIDTH 13.5 % (11.5-14.5)
[2019-05-08 09:09] VITALS: BP 132/56
[2019-05-08 09:13] VITALS: BP 132/78
--- NOTE | 2019-05-08 12:00 | NUR ---
PT SITTING UP IN BED EATING FOOD. AAOX4. SPEECH CLEAR AND APPROPRIATE. NO S/S OF ACUTE DISTRESS. RESPS ARE EVEN AND UNLABORED. SYMMETRICAL CHEST WALL EXPANSION. NSR ON TELE MONITOR. PIV TO L AC INTACT, PORT PATENT, DRESSING CDI, SALINE-LOCKED. CALL LIGHT WITHIN REACH.
[2019-05-08 13:28] VITALS: BP 112/76
[2019-05-08 16:40] VITALS: BP 123/81
--- NOTE | 2019-05-08 17:44 | NUR ---
PT RESTING IN BED BUT EASILY AROUSABLE. AAOX4. SPEECH IS CLEAR AND APPROPRIATE FOR AGE. NO FACIAL DROOP. SMILE IS SYMMETRICAL. NO UNILATERAL WEAKNESS. PERRL. REMAINS ON ROOM AIR. RESPS ARE E/U. SYMMETRICAL CHEST WALL EXPANSION NOTED. NO ACUTE DISTRESS AT THIS TIME. PIV TO L WRIST INTACT, PORT PATENT, SALINE-LOCKED, DRESSING CDI. BED IN LOWEST POSITION, X3 SIDE RAILS UP, CALL LIGHT WITHIN REACH.
--- NOTE | 2019-05-08 18:30 | NUR ---
PT ASKING FOR DINNER TRAY SHE DID NOT RECEIVE ONE. FNS CONTACTED AT THIS TIME AND BRINGING TRAY. PT TO BE NPO AFTER MIDNIGHT FOR CARDIAC CATH AT 0730.
[2019-05-08 20:19] VITALS: BP 112/76
--- NOTE | 2019-05-08 22:41 | NUR ---
RECIEVED PT FROM AM RN. PT IS AAOX4. DENIES ANY HEADACHE OR DIZZINESS AT THIS TIME. PT IS ON TELE #14 WITH NSR. DENIES ANY CHEST PAIN OR DISCOMFORT AT THIS TIME. BREATH SOUNDS ARE EVEN AND UNLABORED. BREATH SOUNDS ARE DIMINISHED BLL. PT IS ON ROOM AIR. BOWEL SOUNDS ARE PRESENT X4 AND ABDOMEN IS SOFT AND ROUND. SKIN IS INTACT AND WNL. PT HAS GENERALIZED WEAKNESS AND IS AMBULATORY WITH MINIMAL ASSIST. PT IS ABLE TO REPOSITION SELF IN BED. CALL LIGHT WITHIN REACH.
--- NOTE | 2019-05-09 00:47 | NUR ---
DR BE IS HERE AND EVJAYANT PT, KELLY GIVEN, NEW ORDER RECEIVED FOR DC FLAGYL AND START ZOSYN IVPB.
--- NOTE | 2019-05-09 03:56 | NUR ---
PT IS SLEEPING. BUT AROUSABLE WHEN SPOKEN TO. BREATHING IS EVEN AND UNLABORED. NO SIGNS OF RESPIRATORY DISTRESS. DENIES ANY DISCOMFORT AT THIS TIME. CALL LIGHT WITHIN REACH.
[2019-05-09 05:55] VITALS: BP 121/80
--- NOTE | 2019-05-09 06:18 | NUR ---
PT SLEEP MOST OF THE NIGHT. CHG WIPES GIVEN PRIOR TO CARDIAC CATH. PT BREATHING EVEN AND UNLABORED. NO S/S OF CHEST PAIN AT THIS TIME. COREG GIVEN WITH SIP OF WATER. NPO AFTER MIDNIGHT. NO BM OR DIARRHEA DURING WHOLE SHIFT.
[2019-05-09 06:19] LABS: BASOPHIL % 0.5 % (0-2); PLATELET COUNT 378 x10^3mcL (130-400); RED CELL DISTRIBUTION WIDTH 13.1 % (11.5-14.5)
[2019-05-09 06:25] LABS: CALCIUM 8.4 mg/dL (8.5-10.1); CARBON DIOXIDE 27.2 mmol/L (21-32); CHLORIDE SERUM 106 mmol/L (98-107); CREATININE SERUM 0.5 mg/dL (0.6-1.0); GFR1 > 60 mL/min; GLUCOSE SERUM 100 mg/dL (74-106); MAGNESIUM 1.7 mg/dL (1.8-2.4); PHOSPHOROUS 3.8 mg/dL (2.5-4.9); POTASSIUM SERUM 4.3 mmol/L (3.5-5.1); SODIUM SERUM 140 mmol/L (136-145)
--- NOTE | 2019-05-09 07:00 | NUR ---
REPORT GIVEN TO KAYLA FROM MARINE DESIGN ENGINEER, ALL QUESTIONS ANSWERED AND CONCERNS ADDRESSED, PT OFF UNIT TO MARINE DESIGN ENGINEER.
--- NOTE | 2019-05-09 07:15 | NUR ---
RECEIVED PATIENT AWAKE AND UP TO THE COMODE AT THIS TIME AND BEEN TAKENT O THE CARDIAC CAATH LAB. PATIENT AHS BEEN SAGED WASHED BUY HERSELF AND IV INTAC. PATIENT AHS SOME SWELLIGN OT THE ANKLES AND LUNGS ARE CLEAR ON AUSCULTATION. CATHY ROBINS NOTED AN EJECTION FRACTION OF 30% AND HAS PLANNED WRIST LEFT TO BE USED FOR THIS PROCEDURE. PATIENT HAS CONSENTED AND CHECKLIST AND QUESTIONARE WAS COMPLETED BY MANAGER INSURANCE. AWAITING ARRIVAL BACK TOT HE FLOOR POST PROCEUDRE.
--- NOTE | 2019-05-09 07:16 | NUR ---
BEDSIDE REPORT GIVEN TO LIZETH WRIGHT. QUESTIONS AND CONCERNS ARE ADDRESSED.
--- NOTE | 2019-05-09 08:45 | NUR ---
RECEIVED POST PROCEDURE AND A PRESSURE BRACLET IN PLACE ON THE LEFT WRIST. NO BLEEDING NOTED AT THIS TIME. A REPORT RECEIVE PATIENT IS FOR INDIUM SCAN TODAY AND PATIENT HAS BEEN NPO FOR THE MEDICATION AID. PATIENT HAS IV INTACT AND PATIENT CONTINUED ON MEDICATION ORDERED. GAVE ALL MEDICATION AND DIET IS PENDING ORDER FROM THE RESIDENT. PATIENT HAS VITALS AT THIS TIME STABLE AND 97.8, 87, 18, 121/80, 94% ON ROOM AIR. SHE HAS RT PROTOCAL AND HAS NOTED SOME GRAM POSITIVE COCCI AND RARE YEAST IN HER RESPIRATORY CULTURE. LUNGS ARE CLEAR AND BOWEL SOUNDS ACTIVE AND PATIENT STATES SHE IS THRISTY AND HUNGERY. CALLED THE [employer] FOR BLOOD DRAW FOR THE TESTING AND THEY WILL BE IN LATER AROUND 1030 INDICATED WHEN THE KIT ARRIVES FOR THE TEST.
[2019-05-09 09:20] VITALS: BP 110/73
--- NOTE | 2019-05-09 11:05 | NUR ---
REMOVED CC OF AIR FROM THE WIRST PRESSURE DEVICE. NO ACTIVE BLEEDING NOTED. JT AHS BEEN SEEN BY THE REESIDENTS AND DIET WAS TO BE ORDERED. PLAN OF CARE DISCUSSEDD WITH THE PATIENT CHERYLD POSSIBLE PACEMAKER PLANNED POST THE INDIUM SCAN.
[2019-05-09 12:04] VITALS: BP 121/77
--- NOTE | 2019-05-09 12:22 | NUR ---
Initial Nutrition Assessment: 223T/B JORGE LUIS GARCIA MR Dx: status post cardiac arrest, meth use PMHx: Crystal meth abuse PSHx: None Labs: CREAT 0.5L, CA 8.4L, AST 287H, ALT 310H, CK 306H, MG 1.7L Meds: coreg, morphine, Zestril, Zofran, zosyn, heparin Diet: NPO for cardiac catheterization PO intake since admission: (05/08) breakfast, lunch 50%, (05/07) lunch 20%, (05/06) dinner 50% Ht: 160.02 cm (63") Wt: 62.5 kg (137#) BMI: 24.4 kg/m2 Bed scale: 62.5 kg IBW: 115# (52 kg) %IBW: 119 UBW: 137# Age: 44/F Food Allergies: NKFA Skin: intact Rik: 16 Edema: trace BLE GI: Last BM: Pt is a 44yo female with PMH of Crystal Meth abuse who was brought to the ER from home with complaints of abdominal pain for [address] Note (05/09): Per progress note (05/09), Dr Baptiste saw the patient and ordered for Indium scan and switched the antibiotics from flagyl to IV zosyn 3.375gms Q6. Will need to wait for the Indium scan results before the ICD placement. Cardiac cath placement. Patient was alert and oriented s/p cardiac cath placement. Patient's diet has been progressed to cardiac. Problem with: N/V/D/C: diarrhea yesterday Problems with: Chewing: Swallowing: none Current appetite: poor Recent wt change: none %wt change: n/a Vitamin/Supplement use: none Special diet at home: Regular Physical activity: walking Nutrition education given: none provided at this time. Patient did not have any diet/nutrition related questions. Food-drug interactions: none Education given: n/a Estimated Nutritional Needs Based on current body weight (62.5 kg) Energy: 9432-9559 kcal/day (25-30 kcal/kg for maintenance) Protein: 62- 75 g/day (1.0-1.2 g/kg for maintenance) Fluid: 5143-6538 mL/day (1 mL/kcal) Nutrition Diagnosis: 1. Altered nutrition related lab values related to meth use as evidenced by AST: 287, ALT: 310. Intervention 1. Recommend continuing cardiac diet at this time. 2. Recommend Ensure Enlive BID. This will provide additional 700 kcal and 40g protein/day. Discussed recommendations with Dr. Ramos. Monitor/Evaluate Goal: PO intake at least 75% of estimated needs Monitor: PO intake, Labs, GI function F/U in 3-5 days as moderate risk 05/12-
--- NOTE | 2019-05-09 13:45 | NUR ---
CONTINUE TO CALVIN THE CATHETERIAZATION SITE AND LET OUT SOME MORE AIR AND PATIENT HAS NO ACITVE BLEEDING AT THIS TIME.
--- NOTE | 2019-05-09 15:08 | NUR ---
REMOVED COMPLETELY THE PRESSURE DEVICE AND NO ACTIVE BLEEDING NOTED. WILL CONTINUE TO MONITOR.
[2019-05-09 16:35] VITALS: BP 115/73
--- NOTE | 2019-05-09 17:24 | NUR ---
PATIENT TOLERATED OOB AND NO ACTIVE BLEEDING AT THE CATHERIZATION SITE. CONTINUED TO MONITOR.
--- NOTE | 2019-05-09 19:20 | NUR ---
RECIEVED PT RESTING IN PLACE WITH NO ACUTE DISTRESS NOTED. RADIAL ACCESS POINT FROM HEART CATH INTACT AND NOT BLEEDING, ASSESMENT PERFORMED AT THIS TIME, PT IS A/OX 4 NO COMPLAINTS OF MILLER OR DIZZINESS, PT DENIES CHEST PAIN OR SOB. TELE 14 NSR, ALL NEEDS ATTENDED TO SAFETY PRECAITONS IN PLACE, WILL CONTINUE TO MONITOR.
[2019-05-09 20:18] VITALS: BP 114/71
--- NOTE | 2019-05-09 21:50 | NUR ---
PT RESTING IN BED WITH NO ACUTE DISTRESS NOTED WATCHING TV, PT REQUESTING APPLE JUICE, ALL NEEDS ATTENDED TO, SAFETY PRECAUTIONS IN PLACE WILL CONTINUE TO MONITOR
--- NOTE | 2019-05-10 00:10 | NUR ---
PT RESTING IN BED WITHNO SIGNS OF ACUTE DISTRESS, RIGHT RADIAL SITE CDI NO SIGNS OF BLEEDING, SAFETY PRECAUTION IN PLACE, WILL CONTINUE TO MONITOR
--- NOTE | 2019-05-10 05:29 | NUR ---
PT RESTED THROUGH NIGHT WITH NO ACUTE DISTRESS, NO SIGNS OF SWELLING OR BLEEDING FROM RADIAL ACCESS SITE FROM CHIEF OPERATOR LOCK TENDER, PT DENIED SOB OR CHEST PAIN THROUGH NIGHT, PT AMBULATED 4 TIMES TO RESTROOM AND VOIDED, SAFETY PRECAUTIONS MAINTAINED THROUGH SHIFT WILL CONTINUE TO MONITOR AND ENDORSE CARE TO ONCOMING SHIFT
[2019-05-10 05:46] VITALS: BP 106/55
--- NOTE | 2019-05-10 08:00 | NUR ---
RECEIVED PATIENT ALERT AND ORIENTED TIMES FOUR THE AREA OF THE CARDIAC CATH IS HEALED AND NO SIGNS OF BLEEDING NOTED. PATIENT VITALS ARE STABLE AND AT 98.3, 77, 18, 106/55 98%. PATEINT HAS BEEN ABLE TO AMBULATE AND DENIES PAIN OR SOB AT THIS TIME PATIENT HAS POTASSIUM LEVEL AT5.2 AND MAG AT 1.7 SHE HAS NOTED EJECTION FRACTION OF 25-30%. AWAITING THE RESULTS OF THE INDIUM SCANA ND HAS HISTORY OF METH AND ALCOHOL USES. SHE HAS BEEN NORMAL SINUS ON THE MONITOR. PATIENT HAS BEEN ON ZOSYN IVPB AND NO ADVERSE REACTION NOTED. LUNGS ARE CLEAR AND BOWEL SOUNDS ACTIVE. SHE DENIES NAUSEA AND TOELRATED DIET OFFERED. WILL CONTINUE TO MONITOR.
[2019-05-10 08:04] LABS: CALCIUM 8.6 mg/dL (8.5-10.1); CHLORIDE SERUM 103 mmol/L (98-107); CREATININE SERUM 0.5 mg/dL (0.6-1.0); GFR1 > 60 mL/min; GLUCOSE SERUM 93 mg/dL (74-106); PHOSPHOROUS 4.6 mg/dL (2.5-4.9); POTASSIUM SERUM 5.2 mmol/L (3.5-5.1); SODIUM SERUM 138 mmol/L (136-145)
[2019-05-10 09:09] VITALS: BP 108/60
[2019-05-10 09:56] LABS: BASOPHIL % 0.3 % (0-2); RED CELL DISTRIBUTION WIDTH 13.2 % (11.5-14.5)
[2019-05-10 10:02] LABS: PLATELET COUNT 406 x10^3mcL (130-400)
[2019-05-10 12:34] VITALS: BP 102/69
--- NOTE | 2019-05-10 13:24 | NUR ---
RECEIVED AWAITED CALL FROM THE [facility] AND PLAN FOR TAKING DOWN THE PATIENT DOWN TO THE REMAINDER PORTION OF THE NEUCLEAR TEST. PATIENT IS HEPLOCKED AND AWAITING SINGLE WIRE SAW OPERATOR AT THIS TIME.
--- NOTE | 2019-05-10 13:53 | NUR ---
DOWN FOR THE NM TEST, INDIUM SCAN SECOND PART. AWAITING RESULTS AT THIS TIME.
--- NOTE | 2019-05-10 15:37 | NUR ---
BACK FROM THE NUCLEAR MED TESTING AND TOLERATED WELL. PATIENT WAS TOLD THERE IS A NEED FOR FURTHER PICURES TOMORROW. PATIENT IS ACCEPTING OF HER EXTENDED STAY AND IS WITHOUT COMPLAINTS OF PAIN AT THIS TIME.
[2019-05-10 16:44] VITALS: BP 116/74
--- NOTE | 2019-05-10 17:52 | NUR ---
IV TO THE FOREARM TENDER AND REMOVED THIS SITE. REATTACHED THE IV TO THE AC SITE AND CONTINUED ON FLUIDS AND ANTIBIOTICS ORDERED. PATIENT TOOK THE MEDICAION FOR THE ELEVATED POTASSIUM ORDERED. SHE IS TOLERATING DIET AND NO COMPLAINTS OF CHEST PAIN AT THIS TIME.
--- NOTE | 2019-05-10 19:20 | NUR ---
RECIEVED PT RESTING IN BED WITH NO ACUTE DISTRESS NOTED AT THIS TIME, ASSESSMENT PERFORMED AT THIS TIME, PT IS A/OX 4 WITH NO COMPLAINTS OF MILLER OR DIZZINESS, PT DENIES SOB OR PAIN AT THIS TIME, TELE 14, ALL NEEDS ATTENDED TO SAFETY PRECAUTIONS IN PLACE WILL CONTINUE TO MONITOR
[2019-05-10 20:34] VITALS: BP 103/62
--- NOTE | 2019-05-11 00:22 | NUR ---
PT RESTING IN BED WIHT NO ACUTE DISTRESS, REQUESTING SALTINES AND APPLE JUICE, ALL NEEDS ATTENDED TO SAFETY PRECAUTIONS IN PLACE, WILL MONITOR
[2019-05-11 04:58] VITALS: BP 120/70
--- NOTE | 2019-05-11 05:10 | NUR ---
PT RESTED COMFORTABLY IN BED THROUGH SHIFT, PT DENIED PAIN OR SOB DURING CARE, PT AMBULATED TO RESTROOM 4 TIMES DURING THE NIGHT, SAFETY PRECAUTIONS REMAINED IN PLACE, WILL CONTINUE TO MONITOR AND ENDORSE CARE TO ONCOMING RN
[2019-05-11 06:36] LABS: BASOPHIL % 0.9 % (0-2); RED CELL DISTRIBUTION WIDTH 13.2 % (11.5-14.5)
[2019-05-11 06:52] LABS: PLATELET COUNT 458 x10^3mcL (130-400)
[2019-05-11 07:03] LABS: CALCIUM 8.5 mg/dL (8.5-10.1); CARBON DIOXIDE 27.2 mmol/L (21-32); CHLORIDE SERUM 103 mmol/L (98-107); CREATININE SERUM 0.8 mg/dL (0.6-1.0); GFR1 > 60 mL/min; GLUCOSE SERUM 89 mg/dL (74-106); POTASSIUM SERUM 4.4 mmol/L (3.5-5.1); SODIUM SERUM 141 mmol/L (136-145)
--- NOTE | 2019-05-11 07:20 | NUR ---
RECEIVED PATIENT AWAKE/ALERT IN BED, DENIES CHEST PAIN. TELE #14 NSR W/ HR 69. IV TO LAC INTACT AND SL NOTED. POC EXPLAINED. QUESTION ADDRESSED. CALL LIGHT WITHIN REACH.
[2019-05-11 08:51] VITALS: BP 108/64
--- NOTE | 2019-05-11 09:20 | NUR ---
PATIENT RESTING IN BED NO COMPLAINS. ALL PO MEDS ADMINISTERED. PROTONIX IVP GIVEN TO LAC PATENT, FLUSH WELL. NEEDS MET. CONT TO MONITOR.
--- NOTE | 2019-05-11 12:00 | NUR ---
PATIENT RESTING IN BED NO COMPLAINS. FLUSH IV TO LFA, ZOSYN IVPB INFUSING WELL, NO S/S OF INFILTRATION OR LEAKING. NEEDS MET. CALL LIGHT WITHIN REACH. UPDATE PATIENT W/ INDIUM SCAN LEFT MESSAGE FOR NUC-MED. WILL F/U. RN PROGRESSIVE CARE STEFFANY AWARE IS NOT DONE YET.
--- NOTE | 2019-05-11 13:11 | NUR ---
HEPLOCK IV TO LFA AND PATENT. PATIENT OFF FLOOR TO NUC-MED VIA WHEELCHAIR.
[2019-05-11 13:38] VITALS: BP 106/65
--- NOTE | 2019-05-11 15:09 | NUR ---
INDIUM SCAN FOR WBC STUDY NEGATIVE.
[2019-05-11 17:01] VITALS: BP 98/53
[2019-05-11 17:28] VITALS: BP 106/55
--- NOTE | 2019-05-11 17:32 | NUR ---
PATIENT RESTING IN BED NO C/O PAIN. COREG AND ZOSYN IVPB ADMINISTERED, IV TO LFA INTACT AND PATENT. NEEDS MET. CONT TO MONITOR.
--- NOTE | 2019-05-11 18:18 | NUR ---
PATIENT RESTING IN BED, ZOSYN COMPLETED, IV HEPLOCK. NEEDS MET. CALL LIGHT WITHIN REACH.
[2019-05-11 21:00] VITALS: BP 98/53
--- NOTE | 2019-05-12 00:40 | NUR ---
Pt. ASLEEP, EASILY AWAKENED DURING ROUNDS, STATED "HELO", NO S/S OF DISTRESS NOTED.
--- NOTE | 2019-05-12 04:15 | NUR ---
PT RESTING, LIGHT SLEEPER WAKES UP THE MINUTE SOMEONE WALKS IN THE ROOM, SMILLED, NO S/S OF DISTRESS NOTED.
[2019-05-12 06:01] VITALS: BP 107/59
[2019-05-12 06:46] LABS: BASOPHIL % 1.5 % (0-2); RED CELL DISTRIBUTION WIDTH 13.3 % (11.5-14.5)
[2019-05-12 06:51] LABS: PLATELET COUNT 497 x10^3mcL (130-400)
[2019-05-12 07:36] LABS: CALCIUM 8.6 mg/dL (8.5-10.1); CARBON DIOXIDE 29.4 mmol/L (21-32); CHLORIDE SERUM 101 mmol/L (98-107); CREATININE SERUM 0.8 mg/dL (0.6-1.0); GFR1 > 60 mL/min; GLUCOSE SERUM 90 mg/dL (74-106); POTASSIUM SERUM 4.6 mmol/L (3.5-5.1); SODIUM SERUM 138 mmol/L (136-145)
--- NOTE | 2019-05-12 08:02 | NUR ---
PT RECIEVED AAO REG RESP NO SOB V/S STABLE,HL TO THE LT AC WITH THE SITE PATENT AND INTACT,PT ON TELE MONITOR AND IN NSR NO ECTOPY OR CHEST PAIN AT THIS TIME,KEPT CLEAN AND DRY TO TOUCH,CALL LIGHT EASY REACHED AND WILL CONTINUE TO MONITOR.
--- NOTE | 2019-05-12 09:02 | NUR ---
PT BEING SEEN BY DR WHITT AT THIS [facility],WILL CONTINUE TO MONITOR.
[2019-05-12 09:31] VITALS: BP 107/60
--- NOTE | 2019-05-12 10:10 | NUR ---
PT RESTING AT THIS TIME,WILL CONTINUE TO MONITOR.
--- NOTE | 2019-05-12 13:10 | NUR ---
RECEIVED PT SITTING ON THE BED, EATING LUNCH. AAOX4. NO C/O PAIN AND SOB. IV SITE ON THE LAC IS PATENT AND INTACT. SIDE RAILS UPX2. CALL LIGHT ON REACH. WILL CONT TO MONITOR
--- NOTE | 2019-05-12 13:14 | NUR ---
ENDORSED TO THE INCOMING NURSE AND PATIENT IN STABLE CONDITION.
[2019-05-12 13:39] VITALS: BP 98/56
--- NOTE | 2019-05-12 14:22 | NUR ---
ENDORSED TO JEFFREY FOR CONTINUITY OF CARE
--- NOTE | 2019-05-12 14:45 | NUR ---
PT IS RESTING COMFORTABLY IN BED W/ FAMILY MEMBER AT BEDSIDE. BREATHING E/U. DENIES PAIN. DISCUSSED POC THAT CURRENTLY AWAITING CARDIOLOGY TO REEVALUATE AICD PLACEMENT AFTER NEGATIVE INDIUM SCAN. NAD.
--- NOTE | 2019-05-12 15:02 | NUR ---
SPOKE TO PATIENT AND ASKED HER TO WHICH IS HER PREFERRED PHARMACY AND SHE VERIFIED [facility] IN [facility].
[2019-05-12 16:03] VITALS: BP 98/56
[2019-05-12 16:14] VITALS: BP 106/46
[2019-05-12 19:05] VITALS: BP 92/55
--- NOTE | 2019-05-12 19:05 | NUR ---
RECEIVED PT LYING IN BED, AAOX4. DENIES HEADACHE/DIZZINESS. ABLE TO FOLLOW COMMANDS. SPEECH IS CLEAR. NO SOB NOTED, LUNG SOUNDS CTA. DENIES CHEST PAIN/PRESSURE, SR ON THE MONITOR. TRACE EDEMA ON BLE. PULSES ARE PALPABLE. DENIES ABDOMINAL DISCOMFORT. HAD BM TODAY, FORMED. VOIDS. IV SITE PATENT AND INTACT. SIDE RAILS UPX2. CALL LIGHT ON REACH. WILL CONT TO MONITOR
--- NOTE | 2019-05-12 22:52 | NUR ---
PT LYING IN BED, HAS HER EYES CLOSED. NO S/S OF PAIN AND SOB. CALL LIGHT ON REACH. WILL CONT TO MONITOR
--- NOTE | 2019-05-13 03:27 | NUR ---
PT HAS HER EYES CLOSED, NO S/S OF PAIN AND SOB. CALL LIGHT ON REACH.
[2019-05-13 06:07] VITALS: BP 106/58
[2019-05-13 06:25] LABS: BASOPHIL % 0.5 % (0-2); RED CELL DISTRIBUTION WIDTH 13.2 % (11.5-14.5)
--- NOTE | 2019-05-13 06:29 | NUR ---
PT LYING IN BED, HAS HER EYES CLOSED. NO S/S OF PAIN AND SOB. NEEDS ARE ATTENDED. IV SITE PATENT AND INTACT. NEEDS ARE ATTENDED. WILL ENDORSE TO INCOMING NURSE FOR CONTINUITY OF CARE
[2019-05-13 06:40] LABS: PLATELET COUNT 520 x10^3mcL (130-400)
[2019-05-13 07:01] LABS: CALCIUM 8.4 mg/dL (8.5-10.1); CARBON DIOXIDE 28.9 mmol/L (21-32); CHLORIDE SERUM 104 mmol/L (98-107); CREATININE SERUM 0.8 mg/dL (0.6-1.0); GFR1 > 60 mL/min; GLUCOSE SERUM 90 mg/dL (74-106); POTASSIUM SERUM 4.8 mmol/L (3.5-5.1); SODIUM SERUM 139 mmol/L (136-145)
--- NOTE | 2019-05-13 07:05 | NUR ---
ENDORSED TO INCOMING NURSE JEANIE FOR CONTINUITY OF CARE
--- NOTE | 2019-05-13 07:20 | NUR ---
RECEIVED PT FROM TODDLER GUIDE RN. Christianne/CARLA. TELE#14. DENIES CHEST PAIN/PRESSURE. RESPIRATIONS EQUAL AND UNLABORED ON RA. DENIES ANY SOB AT THIS TIME. PT C/O ABDOMINAL PAIN BURING TO MUQ 11/15. PT STATES PAIN IS TOLERABLE AT THIS TIME. PT DENIES ANY N/V. PT DENIES ANY MILLER OR DIZZINESS. IV TO LAC SALINE LOCKED. NO REDNESS OR SWELLING NOTED. WILL CONTINUE TO MONITOR. CALL LIGHT IN REACH. BED IN LOWEST POSITION.
--- NOTE | 2019-05-13 09:21 | NUR ---
PT SITTING UP IN BED. NO ACUTE RESP DISTRESS NOTED ON RA. PT C/O ABDOMINAL PAIN PT STATES "THE PAIN IS ABOUT A 5/10, ITS NO LONGER BURNING, IT FEELS LIKE DULL PAIN LIKE WHEN I WAS FIRST HERE." STEFFANY ELECTRIC MOTOR ASSEMBLER AND TESTER AT BEDSIDE. PER STEFFANY ELECTRIC MOTOR ASSEMBLER AND TESTER WILL CONTINUE PROTONIX AND MONITOR PT PAIN. PT GIVEN PO MEDS. TOLERATED WELL. IV TO LAC FLUSHED WELL. NO REDNESS OR SWELLING NOTED. [facility] CALL LIGHT IN REACH. BED IN LOWEST POSITION.
[2019-05-13 09:58] VITALS: BP 106/54
--- NOTE | 2019-05-13 13:12 | NUR ---
PT IN BED RESTING. NO ACUTE RESP DISTRESS NOTED ON RA. PT STATES PAIN TO ABDOMEN IS GONE NOW. PT STATES "IT JUST STARTED AT NIGHT BUT AFTER I GOT THE PROTONIX MY PAIN WENT AWAY." PT TOLERATED LUNCH WELL. PT DENIES ANY N/V. WILL CONTINUE TO MONITOR. CALL LIGHT IN REACH. BED IN LOWEST POSITION.
[2019-05-13 13:15] VITALS: BP 97/63
[2019-05-13 16:55] VITALS: BP 100/47
--- NOTE | 2019-05-13 19:40 | NUR ---
RECEIVED REPORT FROM AM NURSE. PT LAYING DOWN IN BED.PT AAOX4, ABLE TO MAKE NEEDS KNOWN. ON TELE#14, READING SR W MILD ST ELEVATION. PALPABLE PULSES TO ALL EXTREMETIES. NO EDEMA NOTED. FINE CRACKLES TO LOWER LOBES. BREATHING EVEN AND UNLABORED ON RA. NO ACUTE DISTRESS NOTED. ACTIVE BS X4 QUAD. LAST BM 05/11/19. ABD SOFT AND NONDISTENDED. VOIDS FREELY, BRP. AMBULATORY. IV TO LAC FLUSHING WELL. SITE WNL. BED AT LOWEST SETTING. SIDE RAILS X2 UP. CALL LIGHT WITHING RECH. WILL CONTINUE TO MONITOR.
[2019-05-13 20:25] VITALS: BP 96/48
--- NOTE | 2019-05-14 00:18 | NUR ---
PT LAYING DOWN IN BED WITH EYES CLOSED. BREATHING EVEN AND UNLABORED ON RA. NO ACUTE DISTRESS NOTED. BED AT LOWEST SETTING. SIDE RAILS X2 UP. CALL LIGHT WITHING REACH. WILL CONTINUE TO MONITOR.
[2019-05-14 05:45] VITALS: BP 92/47
--- NOTE | 2019-05-14 06:06 | NUR ---
PT SLEPT WELL THROUGHOUT THE NIGHT. BREATHING EVEN AND UNLABORED ON RA. NO SIGNIFICANT CHANGES DURING SHIFT. ALL NEEDS ASSESSED AND ATTENDED TO. NO ACUTE DISTRESS NOTED. BED AT LOWEST SETTING. SIDE RAILS X2 UP. CALL LIGHT WITHING REACH. WILL ENDORSE CARE TO AM NURSE.
[2019-05-14 07:05] LABS: CALCIUM 8.3 mg/dL (8.5-10.1); CARBON DIOXIDE 27.5 mmol/L (21-32); CHLORIDE SERUM 102 mmol/L (98-107); CREATININE SERUM 0.8 mg/dL (0.6-1.0); GFR1 > 60 mL/min; GLUCOSE SERUM 85 mg/dL (74-106); POTASSIUM SERUM 4.4 mmol/L (3.5-5.1); SODIUM SERUM 139 mmol/L (136-145)
[2019-05-14 07:41] LABS: BASOPHIL % 0.5 % (0-2); PLATELET COUNT 487 x10^3mcL (130-400); RED CELL DISTRIBUTION WIDTH 13.3 % (11.5-14.5)
--- NOTE | 2019-05-14 07:51 | NUR ---
NO SOB OR DISTRESS. BREATH SOUNDS ARE CLEAR BILATERALLY. NO MED NEB NEEDED AT THIS TIME.
--- NOTE | 2019-05-14 08:45 | NUR ---
RESTING COMFORTABLY IN BED. AOX4, PERRL. SPEECH CLEAR AND APPROPRIATE. BREATHING E/U ON RA. LUNGS CTAB. DENIES SOB. S1 S2. DENIES CP. PULSES 2+ X4. CAP REFILL < 3 S. IV TO L AC PATENT/CDI/SALINE LOCKED. ABD SOFT/FLAT, BOWEL SOUNDS ACTIVE X4Q. VOIDS FREELY. DENIES PAIN. HOB ELEVATED, BED LOW, SIDE RAILS UP X2, CALL LIGHT IN REACH.
[2019-05-14 09:26] VITALS: BP 112/51
--- NOTE | 2019-05-14 12:48 | NUR ---
Follow-up Nutrition Assessment: 223T/B JORGE LUIS GARCIA MR Dx: status post cardiac arrest, meth use PMHx: Crystal meth abuse Labs: CA 8.3L, PLT 487H Meds: Cordarone, coreg, protonix, Zestril, Zofran, heparin Diet: cardiac with ensure BID PO Intake: (05/12) lunch 80%, breakfast 100%, (05/11) lunch 80%, breakfast 100%, (05/10) 100% all meals Weights: (05/09) 62.5 kg, (05/14) 59.2 kg I/Os: (05/13) 1244/ output not documented Skin: intact Rik: 20 Edema: none GI: c/o epigastric pain Last BM: 05/12 Note (05/14): Patient was alert and oriented and said that she ate almost all of her breakfast this morning. Patient said that she does not have any N/V/D/C at this time and is drinking Ensure. Patient has lost ~3 kg x 5 days. Reported to DANDY Zayas. Per progress note (05/13), AICD placement this week Estimated Nutritional Needs Based on current body weight (62.5 kg) Energy: 8449-1243 kcal/day (25-30 kcal/kg for maintenance) Protein: 62- 75 g/day (1.0-1.2 g/kg for maintenance) Fluid: 8639-1546 mL/day (1 mL/kcal) Nutrition Diagnosis: 1. Altered nutrition related lab values related to meth use as evidenced by AST: 287, ALT: 310. (ongoing- no current lab values on AST and ALT) Intervention: 1. Recommend continuing current diet order at this time. Discussed with DANDY Zayas. Monitor/Evaluate: Goal: Have pt meet at least 75% of estimated needs Monitor: PO intake, Labs, GI function F/U in 3-5 days as moderate risk 05/17-
--- NOTE | 2019-05-14 12:49 | NUR ---
1. Recommend continuing current diet order at this time. Discussed with DANDY Zayas.
[2019-05-14 13:14] VITALS: BP 98/55
[2019-05-14 17:06] VITALS: BP 95/54
--- NOTE | 2019-05-14 17:10 | NUR ---
UPDATED STEFFANY GARAGEMAN ABOUT LIFE VEST. PT TO STAY AT LEAST ONE MORE DAY.
--- NOTE | 2019-05-14 19:59 | NUR ---
RECEIVED PT IN BED COMFORTABLY RESTING. NO DISTRESS NOTED. BREATHING EVEN AND UNLABORED. DENIES ANY PAIN AT THIS TIME. IV SITE PATENT AND INTACT. BED IN LOWEST POSITION,CALL LIGHT WITHIN REACH. WILL CONTINUE TO MONITOR.
[2019-05-14 21:43] VITALS: BP 95/53
[2019-05-15 05:33] VITALS: BP 104/60
--- NOTE | 2019-05-15 06:00 | NUR ---
PT AWAKE. NO DISTRESS NOTED. DENIES ANY PAIN AT THIS TIME.NO IV ACCESS. BED IN LOWEST POSITION,CALL LIGHT WITHIN REACH. WILL CONTINUE TO MONITOR.
[2019-05-15 06:36] LABS: CALCIUM 8.8 mg/dL (8.5-10.1); CARBON DIOXIDE 31.4 mmol/L (21-32); CHLORIDE SERUM 103 mmol/L (98-107); CREATININE SERUM 0.8 mg/dL (0.6-1.0); GFR1 > 60 mL/min; GLUCOSE SERUM 82 mg/dL (74-106); POTASSIUM SERUM 4.5 mmol/L (3.5-5.1); SODIUM SERUM 139 mmol/L (136-145)
[2019-05-15 06:39] LABS: BASOPHIL % 0.5 % (0-2); RED CELL DISTRIBUTION WIDTH 12.8 % (11.5-14.5)
[2019-05-15 07:08] LABS: PLATELET COUNT 499 x10^3mcL (130-400)
--- NOTE | 2019-05-15 07:27 | NUR ---
CARE ENDORSED TO DAY NURSE CRISTINO.
--- NOTE | 2019-05-15 07:30 | NUR ---
RECEIVED PT. IN BED A/A/O X3. NO SOB, NO N/V NOTED. PT. DENIES ANY PAIN AT THIS TIME. NOTICED PT. WITHOUT IV H/L. PT. IS NOT ON TELE. MONITORING. BED IN LOW POS., CALL LIGHT WITHIN REACH. SIDE RAILS UP X3.
[2019-05-15 09:18] VITALS: BP 118/55
--- NOTE | 2019-05-15 11:10 | NUR ---
PT. IS PLACED BACK ON TELE. MONITOR #12 PER NURSE PRACTITIONER GEORGIANA LUNDBERG. HEART MONITOR SHOWING SR WITH SLIGHTLY DEPRESSED T WAVES.
[2019-05-15 12:34] VITALS: BP 109/66
--- NOTE | 2019-05-15 16:12 | NUR ---
PT. AGREED FOR NEW IV SITE TO BE RESTARTED. NEW IV SITE RESTARTED AT L FA WITH GAUGE #22.
[2019-05-15 16:51] VITALS: BP 98/52
--- NOTE | 2019-05-15 19:07 | NUR ---
REMAINS IN STABLE CONDITION AT THIS TIME. WILL CONTINUE TO MONITOR.
--- NOTE | 2019-05-15 19:31 | NUR ---
RECEIVED PT CAME FROM THE BATHROOM. NO DISTRESS NOTED.NO S/S OF PAIN AT THIS TIME. SALINE LOCK TO LFA PATENT AND INTACT. TELE# 12 SR. BED IN LOWEST POSITION,CALL LIGHT WITHINREACH. WILL CONTINUE TO MONITOR.
--- NOTE | 2019-05-15 20:37 | NUR ---
DID REASSESSMENT FOR PNA. REFUSED TO BE VACCINATED. PER PT SHE'S OKAY.
[2019-05-15 22:19] VITALS: BP 100/52
--- NOTE | 2019-05-16 04:51 | NUR ---
PT REMAINED ASLEEP.NO SOB NOTED. DENIES CP AT THIS TIME.CALL LIGHT WITHIN REACH. WILL CONTINUE TO MONITOR.
[2019-05-16 06:12] VITALS: BP 109/68
[2019-05-16 06:12] LABS: BASOPHIL % 0.4 % (0-2); RED CELL DISTRIBUTION WIDTH 13.2 % (11.5-14.5)
[2019-05-16 06:37] LABS: CALCIUM 9.1 mg/dL (8.5-10.1); CARBON DIOXIDE 30.1 mmol/L (21-32); CHLORIDE SERUM 101 mmol/L (98-107); CREATININE SERUM 0.7 mg/dL (0.6-1.0); GFR1 > 60 mL/min; GLUCOSE SERUM 85 mg/dL (74-106); POTASSIUM SERUM 4.5 mmol/L (3.5-5.1); SODIUM SERUM 139 mmol/L (136-145)
--- NOTE | 2019-05-16 07:25 | NUR ---
RECEIVED PATIENT AWAKE/ALERT IN BED, NO DISTRESS NOTED, NO C/O PAIN. TELE #12 SR WITH HR 73, IV TO LFA INTACT AND SL NOTED. QUESTION ADDRESSED REGARD TO LIFE VEST. CALL LIGHT WITHIN REACH.
--- NOTE | 2019-05-16 07:28 | NUR ---
CARE ENDORSED TO DAY NURSE
[2019-05-16 08:06] LABS: PLATELET COUNT 524 x10^3mcL (130-400)
--- NOTE | 2019-05-16 08:22 | NUR ---
GEORGIANA SUPERVISOR ELECTRONIC COILS AT BEDSIDE WITH RN DISCUSS POC WITH PATIENT, INFORM PATIENT WAITING FOR INSURANCE TO AUTHORIZE LIFE VEST, AFTER FITTED FOR LIFE VEST WILL DISCHARGE AND F/U WITH [employer] SOFTWARE VALIDATION ENGINEER. AICD IS NOT RECOMMENDED FOR PATIENT DUE TO METH ABUSE. PT VERBALIZE UNDERSTAND.
--- NOTE | 2019-05-16 08:51 | NUR ---
PATIENT RESTING IN BED NO COMPLAIN, ALL PO MEDS ADMINISTERED, PATIENT TOLERATED WELL. HEPARIN SQ INJECTED TO LT ABDOMEN. NEEDS MET. CONT TO MONITOR.
[2019-05-16 09:56] VITALS: BP 110/57
--- NOTE | 2019-05-16 12:18 | NUR ---
PATIENT RESTING IN BED NO COMPLAIN, ASKING SNACK. CRACKERS AND SPRITE OFFERED. CALL LIGHT WITHIN REACH.
[2019-05-16 13:22] VITALS: BP 102/56
[2019-05-16 16:20] VITALS: BP 99/52
--- NOTE | 2019-05-16 17:15 | NUR ---
PATIENT LAYING IN BED ON THE PHONE, NO COMPLAIN. COREG PO ADMINISTERED. OFFERED PATIENT FLU VACCINE PATIENT REFUSED REASON IS "I GOT SICK REALLY BAD AFTER VACINATED."CRACKERS AND SODA OFFER PER REQUEST. CALL LIGHT WITHIN REACH.
--- NOTE | 2019-05-16 20:00 | NUR ---
PT RECIEVED AAO REG RESP NO SOB V/S STABLE,HL TO THE LTA WITH THE SITE PATENT AND INTACT,PT ON TELE MONITOR AND IN NSR NO ECTOPY OR CHEST PAIN AT THIS TIME,CALL LIGHT EASY REACHED AND WILL CONTINUE TO MONITOR.
[2019-05-16 21:00] VITALS: BP 101/54
--- NOTE | 2019-05-17 00:41 | NUR ---
PT RESTING AT THIS TIME,WILL CONTINUE TO MONITOR.
[2019-05-17 05:57] VITALS: BP 111/56
--- NOTE | 2019-05-17 06:35 | NUR ---
PT HAD RESTING NIGHT KEPT CLEAN AN DRY TO TOUCH,WILL TO MONITORR
--- NOTE | 2019-05-17 09:23 | NUR ---
PATIENT RESTING IN BED NO COMPLAIN, ALL DUE MEDS ADMINISTERED. HEPARIN SQ INJECTED TO RT ABDOMEN, NEEDS METS. CALL LIGHT WITHIN REACH.
[2019-05-17 09:34] VITALS: BP 105/54
--- NOTE | 2019-05-17 12:08 | NUR ---
1. Recommend continuing current diet order at this time.
--- NOTE | 2019-05-17 12:08 | NUR ---
Follow-up Nutrition Assessment: 223T/B JORGE LUIS GARCIA MR Dx: status post cardiac arrest, meth use PMHx: Crystal meth abuse Labs: (05/16) PLT 524H Meds: Cordarone, coreg, protonix, Zestril, Zofran, heparin Diet: cardiac with ensure BID PO Intake: (05/12) lunch 80%, breakfast 100%, (05/11) lunch 80%, breakfast 100%, (05/10) 100% all meals Weights: (05/09) 62.5 kg, (05/14) 59.2 kg, (05/17) 59.7 kg I/Os: (05/16) 2120/ 1250 (870) Skin: intact Rik: 20 Edema: none GI: no N/V Last BM: 05/17 Note (05/14): Patient was sleeping. Per LIZETH John patient ate almost all of her breakfast this morning. Patient said that she does not have any N/V/D/C at this time and is drinking Ensure. RN also mentioned that patient asks for snacks in between meals and has excellent PO. Per progress note (05/16), Patient is waiting to have life vest placed before she can be discharged. Estimated Nutritional Needs Based on current body weight (62.5 kg) Energy: 4123-6839 kcal/day (25-30 kcal/kg for maintenance) Protein: 62- 75 g/day (1.0-1.2 g/kg for maintenance) Fluid: 4868-1479 mL/day (1 mL/kcal) Nutrition Diagnosis: 1. Altered nutrition related lab values related to meth use as evidenced by AST: 287, ALT: 310. (ongoing- no current lab values on AST and ALT) Intervention: 1. Recommend continuing current diet order at this time. Monitor/Evaluate: Goal: Have pt meet at least 75% of estimated needs Monitor: PO intake, Labs, GI function F/U in 7 days as low risk 05/24
[2019-05-17 12:18] VITALS: BP 96/52
--- NOTE | 2019-05-17 12:26 | NUR ---
PATIENT SAT UP AT SIDE OF BED EATING HER LUNCH NO COMPLAIN. CALL LIGHT WITHIN REACH.
[2019-05-17 16:45] VITALS: BP 98/49
--- NOTE | 2019-05-17 16:56 | NUR ---
PATIENT ON THE PHONE NO COMPLAIN, COREG PO ADMINISTERED, UPDATE PATIENT PER CM SILVIA STILL WAIT FOR INSURANCE TO AUTHORIZE LIFE VEST. NEEDS MET. CONT TO MONITOR.
--- NOTE | 2019-05-17 18:49 | NUR ---
PATIENT SLEEPING AT THIS TIME, NO DISTRESS NOTED. CALL LIGHT WITHIN REACH.
[2019-05-17 20:01] VITALS: BP 110/72
--- NOTE | 2019-05-17 20:03 | NUR ---
PATIENT RECEIVED IN BED IN SITTING POSITION, BEING EDUCATED OF THE LIFE VEST BY [employer] CLERK KEN. PATIENT IS ORIENTED X4, SPEECH CLEAR. DENIED CHEST PAINS, HR=[id number], TELE#[id number]. HEPLOCK TO LFA PATENT AND INTACT SITE CLEAR, TAPE SECURED, CAP LOCK APPLIED. AMBULATORY WITH STEADY GAIT. SAFETY PRECAUTIONS MAINTAINED. INFORMED ABOUT POC THIS SHIFT. WILL CONTINUE TO MONITOR.
--- NOTE | 2019-05-17 21:25 | NUR ---
SCHEDULED MEDS ADMINISTERED SQ TO RT SIDE OFF ABDOMEN, PATIENT INFORMED ABOUT ITS PURPOSE. ALL QUESTIONS ADDRESSED.
[2019-05-18 05:20] VITALS: BP 108/59
[2019-05-18 05:40] VITALS: BP 110/72
--- NOTE | 2019-05-18 06:22 | NUR ---
PATIENT SLEPT GOOD AND RESTED WELL DURING THE SHIFT, DENIED CHEST PAINS, SR ON THE MONITOR. WORE LIFE VEST AT ALL TIMES. AMBULATORY TO THE BATHROOM WITH STEADY GAIT. SAFETY PRECAUTIONS MAINTAINED.WILL ENDORSE CONTINUITY OF CARE TO INCOMING NURSE.
--- NOTE | 2019-05-18 07:20 | NUR ---
BEDSIDE HANDS OFF AND INTRODUCTION PERFORMED WITH INCOMING NURSE ARISTEO/ARISTEO STANLEY
--- NOTE | 2019-05-18 07:20 | NUR ---
RECEIVED REPORT FROM COMPUTER TESTER NURSE, PT LYING IN BED IN NO APPARENT DISTRESS. DENIES CHEST PAIN AT THIS TIME. PT IV ON LFA SALINE LOCK PATENT , INTACT NO REDNESS OR SWELLING NOTED. INSTRUCTED PT TO USE CALL LIGHT. BED IN LOW POSITION CALL LIGHT WITHIN REACH. WILL CONTINUE TO MONITOR.
[2019-05-18] MEDS ORDERED: COR200 PO (08:43)
[2019-05-18] MEDS ORDERED: COR3 PO (08:45)
[2019-05-18 08:47] VITALS: BP 109/57
[2019-05-18] MEDS ORDERED: ZES5 PO (08:47)
[2019-05-18 10:31] VITALS: BP 109/57
--- NOTE | 2019-05-18 10:50 | NUR ---
PT GIVEN D/C INSTRUCTIONS, PT VERBALIZED UNDERSTANDING. ALL BELONGINGS WERE TAKEN. IV DISCONTINUED NO SEWLLING , PAIN OR REDDNESS NOTED. CATHETER WAS INTACT UPON REMOVAL. PT STABLE IN NO APPARENT DISTRESS. ESCORTED TO LOBBY WITH WEBSPHERE ARCHITECT. ALL QUESTIONS AND CONCERNS RESOLVED.
== END 2019-05-18 11:10 | disposition home or self-care (01) | DRG 192 ==
LOC: ED 13:27 → DU 19:40 → IC 19:40 → DU 05-06 16:17
PROVIDERS: Emergency Medicine; Family Medicine; Internal Medicine; Specialist; ADMIT General Practice
PROC: 5A1935Z Respiratory Ventilation, Less than 24 Consecutive Hours (ICD-10-PCS; principal; 2019-05-03)
PROC: 0BH17EZ Insertion of Endotracheal Airway into Trachea, Via Natural or Artificial Opening (ICD-10-PCS; 2019-05-03)
PROC: 5A12012 Performance of Cardiac Output, Single, Manual (ICD-10-PCS; 2019-05-03)
PROC: 4A023N7 Measurement of Cardiac Sampling and Pressure, Left Heart, Percutaneous Approach (ICD-10-PCS; 2019-05-09)
PROC: B211YZZ Fluoroscopy of Multiple Coronary Arteries using Other Contrast (ICD-10-PCS; 2019-05-09)
PROC: B2151ZZ Fluoroscopy of Left Heart using Low Osmolar Contrast (ICD-10-PCS; 2019-05-09)
PROC: 4A033BC Measurement of Arterial Pressure, Coronary, Percutaneous Approach (ICD-10-PCS; 2019-05-09)
DX: I45.81 Long QT syndrome (principal); I46.2 Cardiac arrest due to underlying cardiac condition; I21.A1 Myocardial infarction type 2; J96.00 Acute respiratory failure, unspecified whether with hypoxia or hypercapnia; I42.9 Cardiomyopathy, unspecified; F15.288 Other stimulant dependence with other stimulant-induced disorder; K57.00 Diverticulitis of small intestine with perforation and abscess without bleeding; I47.2 Ventricular tachycardia; I48.91 Unspecified atrial fibrillation; E87.6 Hypokalemia; Z68.26 Body mass index [BMI] 26.0-26.9, adult
CPT/HCPCS: CLHCL; 31500; 36600; 76937; 82962; 83880; 84439; 94150; A4628; A9547; A9698; C1769; C1894; C9113; G0378; G0480; J0282; J1644; J2001; J2060; J2250; J2405; J2543; J2704; J3010; J3475; J3480; J3490; J7030; J7040; J7050; J7620; Q0092; Q9967

== ENCOUNTER 2019-05-28 07:29 | Emergency (ER) | payer MEDICAID ==
[~2019-05-28] VITALS: Ht 160 cm; Wt 60.3 kg
[~2019-05-28 07:29] MED LIST: COR200 PO; COR3 PO; ZES5 PO
[2019-05-28 07:36] VITALS: Ht 160 cm; Wt 60.3 kg
[2019-05-28 08:32] VITALS: BP 110/67
== END 2019-05-28 08:32 | disposition home or self-care (01) ==
LOC: ED 07:29
DX: J06.9 Acute upper respiratory infection, unspecified (principal)

== ENCOUNTER 2019-08-24 23:34 | Inpatient (IN) | payer OTHER ==
[~2019-08-24] VITALS: Ht 160 cm; Wt 64.7 kg
[2019-08-24 23:51] VITALS: Ht 160 cm; Wt 64.7 kg
[2019-08-25 00:52] LABS: BASOPHIL % 0.7 % (0-2); PLATELET COUNT 353 x10^3mcL (130-400)
[2019-08-25 01:17] LABS: CALCIUM 8.8 mg/dL (8.5-10.1); CARBON DIOXIDE 29.3 mmol/L (21-32); CHLORIDE SERUM 105 mmol/L (98-107); CREATININE SERUM 0.6 mg/dL (0.6-1.0); GFR1 > 60 mL/min; GLUCOSE SERUM 83 mg/dL (74-106); POTASSIUM SERUM 3.7 mmol/L (3.5-5.1); SODIUM SERUM 140 mmol/L (136-145)
[2019-08-25 01:20] LABS: ALBUMIN 3.1 g/dL (3.4-5.0); ALKALINE PHOSPHATASE 95 U/L (46-116); ALT/SGPT 243 U/L (14-59); AST/SGOT 410 U/L (15-37); BILIRUBIN TOTAL 0.5 mg/dL (0.20-1.00); TOTAL PROTEIN, SERUM 6.9 g/dL (6.4-8.2)
[2019-08-25 02:30] LABS: T3 TOTAL 1.12 ng/mL
[2019-08-25 02:36] LABS: FREE T4 1.06 ng/dL (0.76-1.46); FREE THYROXINE INDEX 3.8 ug/dL (1.4-4.5); T4(THYROXINE) 10.8 ug/dL (4.7-13.3)
[2019-08-25 03:55] LABS: microscopic required? YES; urine erythrocyte 3+ (NEGATIVE)
[2019-08-25 04:26] VITALS: BP 114/70
[2019-08-25 04:44] LABS: AMPHETAMINE QUAL UR NONE DETECTED (See below)
[2019-08-25 04:46] LABS: PHOSPHOROUS 3.4 mg/dL (2.5-4.9)
[2019-08-25 06:59] LABS: PLATELET COUNT 348 x10^3mcL (130-400); RED CELL DISTRIBUTION WIDTH 12.9 % (11.5-14.5)
[2019-08-25 07:28] LABS: CALCIUM 8.2 mg/dL (8.5-10.1); CARBON DIOXIDE 26.8 mmol/L (21-32); CHLORIDE SERUM 105 mmol/L (98-107); CREATININE SERUM 0.6 mg/dL (0.6-1.0); GFR1 > 60 mL/min; GLUCOSE SERUM 132 mg/dL (74-106); PHOSPHOROUS 3.3 mg/dL (2.5-4.9); POTASSIUM SERUM 3.4 mmol/L (3.5-5.1); SODIUM SERUM 139 mmol/L (136-145)
[2019-08-25 07:29] LABS: MAGNESIUM 1.9 mg/dL (1.8-2.4)
[2019-08-25 08:18] VITALS: BP 102/56
[2019-08-25 13:16] VITALS: BP 131/84
[2019-08-25 17:17] VITALS: BP 121/67
[2019-08-25 21:55] VITALS: BP 102/54
[2019-08-26 04:52] VITALS: BP 131/53
[2019-08-26 07:01] LABS: BASOPHIL % 0.1 % (0-2); PLATELET COUNT 395 x10^3mcL (130-400)
[2019-08-26 08:03] LABS: CARBON DIOXIDE 27.5 mmol/L (21-32); CHLORIDE SERUM 103 mmol/L (98-107); POTASSIUM SERUM 4.2 mmol/L (3.5-5.1); SODIUM SERUM 140 mmol/L (136-145)
[2019-08-26 08:04] LABS: ALBUMIN 3.5 g/dL (3.4-5.0); ALKALINE PHOSPHATASE 139 U/L (46-116); ALT/SGPT 525 U/L (14-59); AST/SGOT 343 U/L (15-37); BILIRUBIN TOTAL 1.8 mg/dL (0.20-1.00); CALCIUM 8.8 mg/dL (8.5-10.1); CREATININE SERUM 0.6 mg/dL (0.6-1.0); GFR1 > 60 mL/min; GLUCOSE SERUM 112 mg/dL (74-106); MAGNESIUM 1.7 mg/dL (1.8-2.4); PHOSPHOROUS 3.1 mg/dL (2.5-4.9); TOTAL PROTEIN, SERUM 7.7 g/dL (6.4-8.2)
[2019-08-26 08:20] VITALS: BP 144/75
[2019-08-26 13:03] VITALS: BP 127/68
[2019-08-26 17:30] VITALS: BP 106/52
[2019-08-26 21:07] VITALS: BP 83/49
[2019-08-27 05:41] VITALS: BP 94/53
[2019-08-27 06:50] LABS: PLATELET COUNT 344 x10^3mcL (130-400); RED CELL DISTRIBUTION WIDTH 13.5 % (11.5-14.5)
[2019-08-27 07:01] LABS: BASOPHIL % 0 % (0-2)
[2019-08-27 07:53] VITALS: BP 95/51
[2019-08-27 09:19] LABS: ALBUMIN 2.8 g/dL (3.4-5.0); BILIRUBIN TOTAL 0.9 mg/dL (0.20-1.00); CALCIUM 8.3 mg/dL (8.5-10.1); CARBON DIOXIDE 27.8 mmol/L (21-32); CHLORIDE SERUM 102 mmol/L (98-107); CREATININE SERUM 0.7 mg/dL (0.6-1.0); GFR1 > 60 mL/min; GLUCOSE SERUM 103 mg/dL (74-106); PHOSPHOROUS 2.3 mg/dL (2.5-4.9); POTASSIUM SERUM 3.4 mmol/L (3.5-5.1); SODIUM SERUM 137 mmol/L (136-145); TOTAL PROTEIN, SERUM 6.6 g/dL (6.4-8.2)
[2019-08-27 09:20] LABS: AST/SGOT 96 U/L (15-37); BILIRUBIN DIRECT 0.39 mg/dL (0.0-0.2)
[2019-08-27 09:22] LABS: ALT/SGPT 290 U/L (14-59)
[2019-08-27 09:23] LABS: ALKALINE PHOSPHATASE 139 U/L (46-116)
[2019-08-27 11:10] VITALS: BP 103/68
[2019-08-27 13:09] VITALS: BP 92/54
[2019-08-27 17:47] VITALS: BP 105/34
[2019-08-27 22:08] VITALS: BP 93/48
[2019-08-28 06:06] VITALS: BP 114/57
[2019-08-28 07:04] LABS: CALCIUM 8.6 mg/dL (8.5-10.1); CHLORIDE SERUM 105 mmol/L (98-107); CREATININE SERUM 0.6 mg/dL (0.6-1.0); GFR1 > 60 mL/min; GLUCOSE SERUM 83 mg/dL (74-106); POTASSIUM SERUM 4.3 mmol/L (3.5-5.1); SODIUM SERUM 141 mmol/L (136-145)
[2019-08-28 07:05] LABS: MAGNESIUM 1.9 mg/dL (1.8-2.4)
[2019-08-28 07:09] LABS: BASOPHIL % 0.3 % (0-2); PLATELET COUNT 369 x10^3mcL (130-400); RED CELL DISTRIBUTION WIDTH 13.6 % (11.5-14.5)
[2019-08-28 07:12] LABS: ALBUMIN 2.9 g/dL (3.4-5.0); ALKALINE PHOSPHATASE 154 U/L (46-116); ALT/SGPT 215 U/L (14-59); AST/SGOT 48 U/L (15-37); BILIRUBIN DIRECT 0.22 mg/dL (0.0-0.2); PHOSPHOROUS 2.5 mg/dL (2.5-4.9)
[2019-08-28 09:08] VITALS: BP 103/62
[2019-08-28 12:31] VITALS: BP 107/65
[2019-08-28 16:34] VITALS: BP 97/49
[2019-08-28 20:00] VITALS: BP 94/49
[2019-08-29 05:32] VITALS: BP 118/56
[2019-08-29 06:32] LABS: BASOPHIL % 0.3 % (0-2); PLATELET COUNT 379 x10^3mcL (130-400); RED CELL DISTRIBUTION WIDTH 13.4 % (11.5-14.5)
[2019-08-29 06:40] LABS: CHLORIDE SERUM 105 mmol/L (98-107); POTASSIUM SERUM 4.4 mmol/L (3.5-5.1); SODIUM SERUM 141 mmol/L (136-145)
[2019-08-29 06:41] LABS: CALCIUM 8.8 mg/dL (8.5-10.1); CREATININE SERUM 0.6 mg/dL (0.6-1.0); GFR1 > 60 mL/min; GLUCOSE SERUM 78 mg/dL (74-106)
[2019-08-29 09:17] VITALS: BP 107/50
[2019-08-29] MEDS ORDERED: COR3 PO (10:28)
[2019-08-29] MEDS ORDERED: ZES5 PO (10:29)
[2019-08-29 12:52] VITALS: BP 107/50
== END 2019-08-29 15:42 | disposition home or self-care (01) | DRG 241 ==
LOC: ED 23:34 → MU 08-25 01:38 → DU 08-25 01:38 → MU 08-27 10:21
PROVIDERS: Emergency Medicine; Internal Medicine Gastroenterology; Student in an Organized Health Care Education/Training Program; ADMIT Internal Medicine
PROC: 0DB98ZX Excision of Duodenum, Via Natural or Artificial Opening Endoscopic, Diagnostic (ICD-10-PCS; principal; 2019-08-27 09:30)
DX: K26.5 Chronic or unspecified duodenal ulcer with perforation (principal); I21.4 Non-ST elevation (NSTEMI) myocardial infarction; I42.8 Other cardiomyopathies; E44.0 Moderate protein-calorie malnutrition; Z86.74 Personal history of sudden cardiac arrest; E83.42 Hypomagnesemia; K21.9 Gastro-esophageal reflux disease without esophagitis; F15.21 Other stimulant dependence, in remission; E87.6 Hypokalemia; R74.0 Nonspecific elevation of levels of transaminase and lactic acid dehydrogenase [LDH]; I25.2 Old myocardial infarction; Z68.23 Body mass index [BMI] 23.0-23.9, adult
CPT/HCPCS: 43235; 83880; 84439; A9698; C9113; G0378; J1170; J1200; J1610; J1956; J2250; J2270; J2310; J2405; J2765; J3010; J3490; J7030; Q0092; Q9966; Q9967